=== PATIENT | female | born 1955 | race Caucasian/White ===

== ENCOUNTER 2025-05-15 07:32 | Inpatient (IN) ==
[2025-05-15] MEDS: MECLIZINE HCL 25 MG TAB PO STA (08:09)
[2025-05-15 08:15] LABS: Hematocrit (blood only) 28.3 % (37.0-47.0); Hemoglobin 9.3 g/dl (12.0-16.0); Immature Granulocytes # (auto) 0.06 K/uL (0.01-0.20); Immature Granulocytes % (auto) 0.6 %; Mean Corpuscular Hemoglobin 29.0 pg (25.0-34.0); Mean Corpuscular Volume 88.2 fL (80.0-100.0); Platelet Count 334 K/uL (130-400); RDW Standard Deviation 45.1 fL (36.4-46.3); Red Blood Count 3.21 M/uL (4.20-5.40); White Blood Count 10.74 K/ul (4.8-10.8)
[2025-05-15 08:28] LABS: Alanine Aminotransferase 9 U/L (7-52); Albumin Globulin Ratio 1.6 (0.9-2); Alkaline Phosphatase 51 U/L (34-104); Anion Gap 5 (3-11); Bilirubin,Total 0.4 mg/dl (0.2-1.0); Blood Urea Nitrogen 37 mg/dl (6-23); Calcium 8.8 mg/dl (8.6-10.3); Carbon Dioxide 26 mmol/L (21-32); Chloride 108 mmol/L (98-107); Creatinine Clr Calc Pharmacy 70.8 ml/min; Globulin 2.4 gm/dl (2.5-4.0); Glucose 112 mg/dl (70-99(Fasting)); Magnesium 1.8 mg/dl (1.7-2.4); Potassium 4.0 mmol/L (3.5-5.1); Sodium 139 mmol/L (136-145); Total Protein 6.3 gm/dl (6.0-8.3)
[2025-05-15] MEDS: OPTIRAY 320 125ml IV ONE ×2 (08:37→10:30)
[2025-05-15 08:44] LABS: Thyroid Stimulating Hormone 0.345 uIu/ml (0.300-4.500)
--- NOTE | 2025-05-15 09:04 | CT Scan Report ---
CT angio chest PE protocol CT DOSE: 424.38 mGy.cm HISTORY: SOB, tachycardic, lightheaded. TECHNIQUE: Multiple CTA images of the chest were obtained after the intravenous administration of 120 ml Optiray. Coronal and sagittal MIPS were obtained from the axial data set and were submitted for review. All measurements were obtained according to NASCET criteria. A dose lowering technique was u tilized adhering to the principles of ALARA. COMPARISON STUDY: Chest x-ray yesterday FINDINGS: There is mild bronchial wall thickening consistent with bronchitis. There is minimal depend ent atelectasis in the lung bases. There is no pulmonary consolidation or pleural effusion. No pneumo thorax. No significant pulmonary nodule. No enlarged adenopathy. There is a small hiatal hernia. Ther e is minimal esophageal distention with mild retained fluid. There are a few cysts at the visualized upper liver. There is no thoracic aortic dissection or aneurysm. No pulmonary embolism. No acute osse ous findings. IMPRESSION: No pulmonary embolism or pneumonia seen. ACT 112: Negative or not required by law. The above report was generated using voice recognition software. It may contain grammatical, syntax o r spelling errors. Electronically signed by: Marcellus Calderón M.D. 05/15/2025 9:02 AM
[2025-05-15 09:13] LABS: Chlamydia pneumoniae PCR Not Detected (NotDetected); Coronavirus 229E PCR Not Detected (NotDetected); Coronavirus CoV-2 (COVID19)PCR Not Detected (NotDetected); Coronavirus HKU1 PCR Not Detected (NotDetected); Coronavirus NL63 PCR Not Detected (NotDetected); Coronavirus OC43PCR Not Detected (NotDetected); Human Metapneumovirus PCR Not Detected (NotDetected); Parainfluenza Virus 1 PCR Not Detected (NotDetected); Parainfluenza Virus 2 PCR Not Detected (NotDetected); Parainfluenza Virus 3 PCR Not Detected (NotDetected); Parainfluenza Virus 4 PCR Not Detected (NotDetected); Respiratory Syncytial VirusPCR Not Detected (NotDetected); Rhinovirus/Enterovirus PCR Not Detected (NotDetected)
[2025-05-15] MEDS ORDERED: SODIUM CHLORIDE 0.9% 100 ML IV PRN (10:16)
[2025-05-15] MEDS ORDERED: PANTOPRAZOLE BOLUS/DRIP IV STA (10:37)
--- NOTE | 2025-05-15 10:37 | History & Physical Report ---
Date of Service May 15, 2025 Assessment & Plan (1) Acute blood loss anemia: Plan: -given large melanotic diarrhea yesterday, elevated BUN and 3 point Hgb drop strongly suggested -diminished cap refill suggestive of possible impending shock -differential includes perforated gastric ulceration, erosive gastritis, vascular ectasia, malignancy, Diulafoys lesion, gastric varices, other upper GI bleed, less likely lower GI bleed Plan: -2 large bore IVs -investigator consult, admit to ICU given presumed rapid GI bleed -CTA abdomen/pelvis STAT ordered by this provider immediately upon admission -f/u lactic acid -PPI drip with 80 IV bolus -GI consulted for consideration of scope, appreciate recs -if active GI bleed will need emergent transfer for IR ablation -blood consent obtained, 2 units of blood ordered urgently -LR 1 L ordered, will give 2.5L total -avoid NSAIDs, SCDs ordered (2) Melena: Plan: -see above (3) Hypothyroidism: Plan: -continue levothyroxine (4) HLD (hyperlipidemia): Plan: -continue simvastatin Plan I spent a total of 90 minutes in direct patient care, including [id number] time with the patient and/or family, reviewing medical records, ordering and reviewing diagnostic tests, and coordinating care with other healthcare providers. This time includes: history taking, physical examination, medical decision making, counseling, ECG interpretation, imaging interpretation, lab interpretation, orders, and education, excluding time spent in the performance of separately billed services. History of Present Illness Chief Complaint: -melena, syncope Primary Care Provider: Berlin Frausto MD 70 yo female with pmhx of hypothyroidism, diverticulosis, HLD who presents for melena and syncope. No admissions at [facility]. Had ED visit yesterday for melena, Hgb stable, discharged home. Today, presents for syncopal episodes while walking, Hgb drop of 3 points, given meclizine, CTA chest unrevealing, admitted to medicine for further workup. On medicine, this provider ordered CTA abdomen/pelvis STAT, started protonix, ordered lactic acid, fluids, GI consulted immediately upon admission. Upon evaluation, blood ordered given paleness and diminished cap refill. Patient seen and evaluated at bedside. present as well. Patient had large melanotic diarrhea yesterday. No BM since then. This morning had presyncopal and syncopal episodes from sitting to standing. Patient feels very fatigued and weak. She states she is feeling sleepy all the time for the past 24-48 hours. Some nausea as well. Denies chest pain or SOB. No alcohol use, no tobacco use, no drug use, full code (discussed and recommended to patient and family who agree) Allergies Allergy/AdvReac Type Severity Reaction Status Date / Time No Known Allergies Allergy Unverified 02/27/11 20:45 Home Medications Medication Instructions Recorded Confirmed Type conjugated estrogens 0.625 mg 0 mg PO DAILY ##0 02/27/11 05/15/25 History tablet (Premarin) simvastatin 20 mg tablet 20 mg PO PM ##0 02/27/11 05/15/25 History levothyroxine 100 mcg tablet 100 mcg PO DAILY 05/14/25 05/15/25 History Past Med/Surg History Problem List (Updated 05/15/25 @ 10:59 by Mj Campos MD) HLD (hyperlipidemia) Hypothyroidism Melena Acute blood loss anemia Nausea (Acute) Bloody diarrhea (Acute) Diarrhea (Acute) Social History Smoking Status: Never smoker Preferred Language: Nigerien Feels Safe at Home: Yes Review of Systems Review of Systems: -negative unless listed above Physical Exam Physical Exam: Gen: A&O 3 NAD, ill appearing HEENT: NCAT, EOMI, not icteric. External ears normal. No rhinorrhea. Moist mucous membranes. Neck: Supple, full range of motion, no observable masses, No meningeal sign. Lungs: No Respiratory distress. CV: tachycardic, regular rhythm Abdomen: Soft, nondistended, No rebound tenderness. MSK: No joint swelling, no redness. Diminished cap refill. Skin: No rashes, petechiae, lesions. Pale appearing Neuro: Normal Gait, Grossly intact. Psych: Appropriate for situation. Results & Data Results & Data Vital Signs (Past 12 Hours) Vital Signs Temp Pulse Resp BP Pulse Ox O2 Del Method O2 Flow Rate 05/15/25 10:01 129/82 05/15/25 10:00 100 H 24 99 05/15/25 09:54 87 20 97 05/15/25 09:42 91 H 99 05/15/25 09:21 87 18 97 05/15/25 09:18 87 19 97 05/15/25 09:00 94/65 L 05/15/25 09:00 94/65 L 05/15/25 08:48 93 H 16 98 05/15/25 08:42 94 H 23 99 05/15/25 08:39 101 H 21 99 05/15/25 08:15 99 H 22 97 05/15/25 08:11 114 H 05/15/25 08:00 100 H 98 05/15/25 08:00 113/79 05/15/25 08:00 113/79 05/15/25 07:55 98 Room Air 0 05/15/25 07:51 126/85 05/15/25 07:39 36.6 C 116 H 18 102/71 100 Room Air Laboratory Results -personally reviewed, Hgb drop of 3 points significant in 24 hours, elevated BUN consistent with active GI bleed, creatinine at baseline Code Status & VTE Plan Code Status -full code, recommended to and discussed with patient and family in room
--- NOTE | 2025-05-15 11:07 | CT Scan Report ---
CT ANGIOGRAPHY OF THE ABDOMEN AND PELVIS CLINICAL HISTORY: Concern for active GI bleed. COMPARISON STUDY: No previous studies for comparison. TECHNIQUE: Helical axial images of the abdomen and pelvis were obtained during arterial phase followi ng intravenous injection 120 cc of Optiray 320 IV. Sagittal and coronal reformats were viewed. A dose lowering technique was utilized adhering to the principles of ALARA. FINDINGS: Visualized lung bases are unremarkable. No pneumatosis, free air or gas is present. There i s a small hiatal hernia. Note is made of a 1.8 cm hyperdense focus within the posterior gastric antru m on image 93 of 349 suggestive of intraluminal IV contrast. This suggests active GI bleed. No additi onal foci of abnormal intraluminal IV contrast are identified on this exam. The caliber of the abdomi nal aorta is normal. Major branch vessels are patent. Several hepatic cysts measure up to 5.1 cm. The spleen, adrenal glands, kidneys and pancreas are unremarkable. Incidental note is made of excreted c ontrast from recent chest CT. 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 No hydronephrosis. Ther e is no evidence for a bowel obstruction. No bowel wall thickening is identified. There is a moderate amount of stool within the distal sigmoid colon and rectum. There is no lymphadenopathy. No biliary or pancreatic ductal dilatation is present. IMPRESSION: 1. 1.8 cm hyperdense focus within the posterior gastric antrum consistent with an active GI bleed. Th is finding will be called/faxed to the ordering provider at time of dictation. 2. Otherwise, unremarkable CTA of the abdomen and pelvis. ACT 112: Negative or not required by law. Electronically signed by: Eber Hernandez M.D. 05/15/2025 11:05 AM
[2025-05-15] MEDS: LACTATED RINGER'S 1,000 ML IV ONE (11:11)
[2025-05-15] MEDS: PANTOprazole 40 MG in DEXTROSE 5% MINI-B 100 ML IV SCH (11:25)
--- NOTE | 2025-05-15 11:42 | Emergency Department Note ---
Impression & Plan Acute blood loss anemia, GI bleeding ED Provider Note NAME: MONSE CEDENO AGE: 70 SEX: F : 1955 ARRIVES VIA: Walk-In INFORMANT: Patient, ED PROVIDER(S): Ruthy Aviles MD CHIEF COMPLAINT: Tachycardia HPI: This is a 70-year-old female sent for tachycardia/dizziness. Patient states that she was discharged yesterday feeling better but has had recurrence of her symptoms of lightheadedness/dizziness. She states she feels that she might pass out when she stands up. She does feel short of breath with ambulation. She reports no chest pain currently. She reports no abdominal pain. She reports no further bloody or black bowel movements. Otherwise no fevers, chills, nausea or vomiting. ROS: See above HPI for pertinent positives & negatives. A total of 10 systems reviewed and were otherwise negative. PAST MEDICAL HISTORY: See Below PAST SURGICAL HISTORY: See Below FAMILY HISTORY: See Below SOCIAL HISTORY: See Below HOME MEDICATIONS: See Below ALLERGIES: See Below VITALS: See Below PHYSICAL EXAMINATION: General: resting comfortably in no acute distress Head: Normocephalic and atraumatic Eyes: Normal inspection, extraocular muscles intact Ear, nose, throat: Normal external exam Neck: Normal range of motion Respiratory: lungs clear to auscultation bilaterally Cardiovascular: Regular rate/rhythm, no murmur GI: soft, nontender, no guarding or rebound Extremities: nontender, moves all extremities Neuro: The patient awake and alert, appropriately conversive, no focal deficits, symmetric faces Skin: Warm, dry, and intact MEDICAL DECISION MAKING: This is a 70-year-old female presented for tachycardia/dizziness. Patient was here yesterday, seen by myself after 1 episode of black stool. This is been only 1 time, not recurrent. Patient is tachycardic. Patient was orthostatic hypotension yesterday, persistent today. Will give recent blood work. Patient persistently tachycardic without abdominal pain. She does report shortness of breath otherwise. -Repeat blood work does reveal downtrending hemoglobin almost 3 points. Likely from from GI bleed. - Upper respiratory panel negative - CTA PE protocol negative - Patient will be admitted to [facility] service for presented hemoglobin, GI bleed, tachycardia -Care discussed with Dr. Mccall Differential diagnosis: PE, anemia, GI bleed Independent History obtained from: Diagnostics interpreted by me: ECG: ECG independently interpreted by me with sinus tachycardia, rate of 101, normal axis, normal [place], normal QRS, normal QTc, no ST segment elevations consistent with STEMI criteria Cardiac Monitoring: An order was placed for continuous cardiac monitoring. The monitor shows a rate of with 102 with sinus rhythm. Past Med/Surg History Problem List (Updated 05/15/25 @ 15:33 by Ruthy Aviles MD) GI bleeding (Acute) Anemia HLD (hyperlipidemia) Hypothyroidism Melena Acute blood loss anemia (Acute) Nausea (Acute) Bloody diarrhea (Acute) Diarrhea (Acute) Social History Smoking Status: Never smoker Preferred Language: Dutch Feels Safe at Home: Yes Allergies Allergies Allergy/AdvReac Type Severity Reaction Status Date / Time No Known Allergies Allergy Unverified 02/27/11 20:45 Home Meds Home Medications Medication Instructions Recorded Confirmed conjugated estrogens 0.625 mg 0 mg PO DAILY ##0 02/27/11 05/15/25 tablet (Premarin) simvastatin 20 mg tablet 20 mg PO PM ##0 02/27/11 05/15/25 levothyroxine 100 mcg tablet 100 mcg PO DAILY 05/14/25 05/15/25 Results & Data (ED) Vital Signs Vital Signs - 24 hr 05/15/25 07:39 05/15/25 07:51 05/15/25 07:55 Temperature 36.6 C Temperature Source Temporal Artery Scan Pulse Rate 116 H Pulse Rate from SpO2 Sensor Respiratory Rate 18 Respiratory Effort / Characteristics Non-Labored Spontaneous Respiratory Depth Normal Respiratory Pattern Regular Blood Pressure 102/71 126/85 Blood Pressure Mean 81 105 Pulse Oximetry 100 98 Oxygen Delivery Method Room Air Room Air Oxygen Flow Rate 0 Sepsis Recent Fever Within 48 Hours No Sepsis New/Unexplained Change in Mental Status No Sepsis Action Taken by Nursing No Action Required 05/15/25 08:00 05/15/25 08:00 05/15/25 08:00 Temperature Temperature Source Pulse Rate 100 H Pulse Rate from SpO2 Sensor 104 H Respiratory Rate Respiratory Effort / Characteristics Respiratory Depth Respiratory Pattern Blood Pressure 113/79 113/79 Blood Pressure Mean 94 94 Pulse Oximetry 98 Oxygen Delivery Method Oxygen Flow Rate Sepsis Recent Fever Within 48 Hours Sepsis New/Unexplained Change in Mental Status Sepsis Action Taken by Nursing 05/15/25 08:11 07/31/25 08:15 05/15/25 08:39 Temperature Temperature Source Pulse Rate 114 H 99 H 101 H Pulse Rate from SpO2 Sensor 99 H 100 H Respiratory Rate 22 21 Respiratory Effort / Characteristics Respiratory Depth Respiratory Pattern Blood Pressure Blood Pressure Mean Pulse Oximetry 97 99 Oxygen Delivery Method Oxygen Flow Rate Sepsis Recent Fever Within 48 Hours Sepsis New/Unexplained Change in Mental Status Sepsis Action Taken by Nursing 05/15/25 08:42 05/15/25 08:48 05/15/25 09:00 Temperature Temperature Source Pulse Rate 94 H 93 H Pulse Rate from SpO2 Sensor 94 H 95 H Respiratory Rate 23 16 Respiratory Effort / Characteristics Respiratory Depth Respiratory Pattern Blood Pressure 94/65 L Blood Pressure Mean 77 Pulse Oximetry 99 98 Oxygen Delivery Method Oxygen Flow Rate Sepsis Recent Fever Within 48 Hours Sepsis New/Unexplained Change in Mental Status Sepsis Action Taken by Nursing 05/15/25 09:00 05/15/25 09:18 05/15/25 09:21 Temperature Temperature Source Pulse Rate 87 87 Pulse Rate from SpO2 Sensor 87 87 Respiratory Rate 19 18 Respiratory Effort / Characteristics Respiratory Depth Respiratory Pattern Blood Pressure 94/65 L Blood Pressure Mean 77 Pulse Oximetry 97 97 Oxygen Delivery Method Oxygen Flow Rate Sepsis Recent Fever Within 48 Hours Sepsis New/Unexplained Change in Mental Status Sepsis Action Taken by Nursing 05/15/25 09:42 Temperature Temperature Source Pulse Rate 91 H Pulse Rate from SpO2 Sensor 90 Respiratory Rate Respiratory Effort / Characteristics Respiratory Depth Respiratory Pattern Blood Pressure Blood Pressure Mean Pulse Oximetry 99 Oxygen Delivery Method Oxygen Flow Rate Sepsis Recent Fever Within 48 Hours Sepsis New/Unexplained Change in Mental Status Sepsis Action Taken by Nursing Laboratory Data 05/15/25 11:21 05/15/25 11:21 Lab Results 05/15/25 05/15/25 Range/Units 07:50 08:10 WBC 10.74 (4.8-10.8) K/ul RBC 3.21 L (4.20-5.40) M/uL Hgb 9.3 L D (12.0-16.0) g/dl Hct 28.3 L (37.0-47.0) % MCV 88.2 (80.0-100.0) fL MCH 29.0 (25.0-34.0) pg MCHC 32.9 (32.0-36.0) g/dL RDW Std Deviation 45.1 (36.4-46.3) fL RDW Coeff of Kevin 14.0 (11.5-14.5) % Plt Count 334 (130-400) K/uL MPV 10.6 (9.4-12.4) fL Immature Gran % (Auto) 0.6 % Neut % (Auto) 69.6 % Lymph % (Auto) 23.8 % Emery % (Auto) 5.1 % Eos % (Auto) 0.5 % Baso % (Auto) 0.4 % Neut # (Auto) 7.48 H (1.40-6.50) K/uL Lymph # (Auto) 2.56 (1.20-3.40) K/uL Emery # (Auto) 0.55 (0.11-0.59) K/uL Eos # (Auto) 0.05 (0.00-0.50) K/uL Baso # (Auto) 0.04 (0.00-0.20) K/uL Immature Gran # (Auto) 0.06 (0.01-0.20) K/uL Sodium 139 (136-145) mmol/L Potassium 4.0 (3.5-5.1) mmol/L Chloride 108 H (98-107) mmol/L Carbon Dioxide 26 (21-32) mmol/L Anion Gap 5 (3-11) BUN 37 H (6-23) mg/dl Creatinine 0.71 (0.6-1.2) mg/dl Est Cr Clr Drug Dosing 70.8 ml/min eGFR 92.56 BUN/Creatinine Ratio 52.1 H (10-20) Glucose 112 H (70-99(Fasting)) mg/dl Calcium 8.8 (8.6-10.3) mg/dl Magnesium 1.8 (1.7-2.4) mg/dl Total Bilirubin 0.4 (0.2-1.0) mg/dl AST 14 (13-39) U/L ALT 9 (7-52) U/L Alkaline Phosphatase 51 (34-104) U/L Troponin I High Sens < 2.3 (0-14) pg/ml Total Protein 6.3 (6.0-8.3) gm/dl Albumin 3.9 (3.4-5.0) gm/dl Globulin 2.4 L (2.5-4.0) gm/dl Albumin/Globulin Ratio 1.6 (0.9-2) TSH 0.345 (0.300-4.500) uIu/ml Adenovirus (PCR) Not Detected (NotDetected) B. pertussis DNA (PCR) Not Detected (NotDetected) B.parapertussis DNA PCR Not Detected (NotDetected) C. pneumoniae DNA (PCR) Not Detected (NotDetected) Coronavirus OC43 (PCR) Not Detected (NotDetected) Coronavirus HKU1 (PCR) Not Detected (NotDetected) Coronavirus 229E (PCR) Not Detected (NotDetected) SARS-CoV-2 (PCR) Not Detected (NotDetected) Coronavirus NL63 (PCR) Not Detected (NotDetected) Human Metapneumovir PCR Not Detected (NotDetected) Influenza Type A (PCR) Not Detected (NotDetected) Influenza Type B (PCR) Not Detected (NotDetected) M. pneumoniae (PCR) Not Detected (NotDetected) Parainfluenza 1 (PCR) Not Detected (NotDetected) Parainfluenza 2 (PCR) Not Detected (NotDetected) Parainfluenza 3 (PCR) Not Detected (NotDetected) Parainfluenza 4 (PCR) Not Detected (NotDetected) RSV (PCR) Not Detected (NotDetected) Entero/Rhino (PCR) Not Detected (NotDetected) Administered Medications Discontinued Medications Lactated Ringer's (Lr) 1,000 mls @ 999 mls/hr IV .Q1H1M ONE Stop: 05/15/25 11:26 Last Infusion: 05/15/25 14:24 Dose: Infused Documented By: NMJayden Admin: 05/15/25 11:11 Dose: 999 mls/hr Documented By: MELISSA Pantoprazole Sodium 40 mg/ (Dextrose) 100 mls @ 20 mls/hr IV Q5H ELE Stop: 06/14/25 10:59 Last Infusion: 05/15/25 14:24 Dose: Infused Documented By: Admin: 05/15/25 11:25 Dose: 8 mg/hr, 20 mls/hr Documented By: MELISSA Pantoprazole Sodium 80 mg/ (Dextrose) 120 mls @ 480 mls/hr IV NOW ONE Stop: 05/15/25 10:51 Last Infusion: 05/15/25 11:25 Dose: Infused Documented By: Admin: 05/15/25 11:12 Dose: 480 mls/hr Documented By: MELISSA Ioversol (Optiray 320 125ml) 120 ml IV ONCE ONE Stop: 05/15/25 08:37 Last Admin: 05/15/25 08:37 Dose: 120 ml Documented By: SHARMAINE Ioversol (Optiray 320 125ml) 120 ml IV ONCE ONE Stop: 05/15/25 10:30 Last Admin: 05/15/25 10:30 Dose: 120 ml Documented By: SHARMAINE Meclizine HCl (Meclizine Hcl 25 Mg Tab) 25 mg PO NOW STA Stop: 05/15/25 08:04 Last Admin: 05/15/25 08:09 Dose: 25 mg Documented By: MELISSA Metoclopramide HCl (Metoclopramide Hcl Inj 5 Mg/Ml 2 Ml Vial) 10 mg IV NOW STA Stop: 05/15/25 11:52 Last Admin: 05/15/25 11:58 Dose: 10 mg Documented By: MELISSA Imaging Data Radiologist's Impression: Chest CTA 05/15/25 08:03 CT angio chest PE protocol CT DOSE: 424.38 mGy.cm HISTORY: SOB, tachycardic, lightheaded. TECHNIQUE: Multiple CTA images of the chest were obtained after the intravenous administration of 120 ml Optiray. Coronal and sagittal MIPS were obtained from the axial data set and were submitted for review. All measurements were obtained according to NASCET criteria. A dose lowering technique was utilized adhering to the principles of ALARA. COMPARISON STUDY: Chest x-ray yesterday FINDINGS: There is mild bronchial wall thickening consistent with bronchitis. There is minimal dependent atelectasis in the lung bases. There is no pulmonary consolidation or pleural effusion. No pneumothorax. No significant pulmonary nodule. No enlarged adenopathy. There is a small hiatal hernia. There is minimal esophageal distention with mild retained fluid. There are a few cysts at the visualized upper liver. There is no thoracic aortic dissection or aneurysm. No pulmonary embolism. No acute osseous findings. IMPRESSION: No pulmonary embolism or pneumonia seen. ACT 112: Negative or not required by law. The above report was generated using voice recognition software. It may contain grammatical, syntax or spelling errors. Electronically signed by: Marcellus Calderón M.D. 05/15/2025 9:02 AM Abdomen/Pelvis CTA 05/15/25 09:45 CT ANGIOGRAPHY OF THE ABDOMEN AND PELVIS CLINICAL HISTORY: Concern for active GI bleed. COMPARISON STUDY: No previous studies for comparison. TECHNIQUE: Helical axial images of the abdomen and pelvis were obtained during arterial phase following intravenous injection 120 cc of Optiray 320 IV. Sagittal and coronal reformats were viewed. A dose lowering technique was utilized adhering to the principles of ALARA. FINDINGS: Visualized lung bases are unremarkable. No pneumatosis, free air or gas is present. There is a small hiatal hernia. Note is made of a 1.8 cm hyperdense focus within the posterior gastric antrum on image 93 of 349 suggestive of intraluminal IV contrast. This suggests active GI bleed. No additional foci of abnormal intraluminal IV contrast are identified on this exam. The caliber of the abdominal aorta is normal. Major branch vessels are patent. Several hepatic cysts measure up to 5.1 cm. The spleen, adrenal glands, kidneys and pancreas are unremarkable. Incidental note is made of excreted contrast from recent chest CT. 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 No hydronephrosis. There is no evidence for a bowel obstruction. No bowel wall thickening is identified. There is a moderate amount of stool within the distal sigmoid colon and rectum. There is no lymphadenopathy. No biliary or pancreatic ductal dilatation is present. IMPRESSION: 1. 1.8 cm hyperdense focus within the posterior gastric antrum consistent with an active GI bleed. This finding will be called/faxed to the ordering provider at time of dictation. 2. Otherwise, unremarkable CTA of the abdomen and pelvis. ACT 112: Negative or not required by law. Electronically signed by: Eber Hernandez M.D. 05/15/2025 11:05 AM Discharge Plan Visit Data Chief Complaint: Arrhythmia/Palpitations Stated Complaint: DIZZY,LIGHTHEADED,HIGH HEART RATE ED Provider: Ruthy Aviles Discharge Problem: Acute blood loss anemia, GI bleeding Patient Disposition: Admitted As Inpatient Condition: Fair Discharge Instructions Interventions: ED Discharge Assessment Last Done: 05/15/25 12:51
[2025-05-15 11:45] LABS: Hematocrit (blood only) 19.3 % (37.0-47.0); Hemoglobin 6.4 g/dl (12.0-16.0); Mean Corpuscular Hemoglobin 29.5 pg (25.0-34.0); Mean Corpuscular Volume 88.9 fL (80.0-100.0); Platelet Count 202 K/uL (130-400); RDW Standard Deviation 45.8 fL (36.4-46.3); Red Blood Count 2.17 M/uL (4.20-5.40); White Blood Count 7.17 K/ul (4.8-10.8)
[2025-05-15 11:57] LABS: Anion Gap 3.0 (3-11); Blood Urea Nitrogen 36.0 mg/dl (6-23); Calcium 7.5 mg/dl (8.6-10.3); Carbon Dioxide 24.0 mmol/L (21-32); Chloride 109.0 mmol/L (98-107); Creatinine Clr Calc Pharmacy 81.1 ml/min; Glucose 138.0 mg/dl (70-99(Fasting)); Potassium 4.3 mmol/L (3.5-5.1); Sodium 136.0 mmol/L (136-145)
[2025-05-15] MEDS: METOCLOPRAMIDE HCL INJ 5 MG/ML 2 ML VIAL IV STA (11:58)
--- NOTE | 2025-05-15 12:01 | Gastrointestinal Consultation ---
Date of Consultation May 15, 2025 Assessment & Plan (1) Melena: (2) Anemia: Plan Patient presented to the ED with syncopal episode. one large melanotic stool yesterday per patient and . she had hgb drop from 12.9 to 6.4. CTA suggestive of active bleed in the posterior gastric antrum. Discussed case with Dr. Newman who advised on plan. - set up emergent EGD to further evaluate active GI bleeding. - monitor hgb/hct. transfuse as needed. - recommend continue with protonix drip. - keep NPO. - will give 10mg of IV reglan now. -Further recommendations to follow. Supervising Physician Co-Signing Physician Notes I saw and examined this patient with our nurse practitioner and agree with her assessment and plan. Proceeding with emergency EGD in OR. History of Present Illness Reason for Consultation: melena, GIB Requesting Physician: Mj Campos MD History of Present Illness Patient is a 70 year old female who presented to the ED today after a syncopal episode. She had passed out at home per her . She reportedly had a large melanotic stool yesterday with none since. hgb dropped from 12.9 to the 6.4 today. she underwent a CTA suggestive of active bleeding in the stomach. patient denies other GI symptoms currently. rare nsaid use at home but not recently. CTA 05/15/25 1.8 cm hyperdense focus within the posterior gastric antrum consistent with an active GI bleed. This finding will be called/faxed to the ordering provider at time of dictation. otherwise, unremarkable CTA of the abdomen and pelvis. she had never had an EGD before. She had colonoscopy about 3 years ago that was unremarkable. Allergies Allergy/AdvReac Type Severity Reaction Status Date / Time No Known Allergies Allergy Unverified 02/27/11 20:45 Home Medications Medication Instructions Recorded Confirmed Type conjugated estrogens 0.625 mg 0 mg PO DAILY ##0 02/27/11 05/15/25 History tablet (Premarin) simvastatin 20 mg tablet 20 mg PO PM ##0 02/27/11 05/15/25 History levothyroxine 100 mcg tablet 100 mcg PO DAILY 05/14/25 05/15/25 History Patient History Social History Smoking Status: Never smoker Preferred Language: [place] Feels Safe at Home: Yes Review of Systems Review of Systems: All systems reviewed & are unremarkable except as noted in HPI & below Physical Exam Constitutional: WD/WN, vitals as above Respiratory: normal respiratory effort, lungs clear to auscultation Cardiovascular: Rate/Rhythm: regular rate and regular rhythm Gastrointestinal (Abdomen): normal bowel sounds, soft, nontender, no hepatosplenomegaly Psychiatric: Orientation: alert and oriented x 3 Affect: euthymic affect Results & Data Vital Signs (Past 12 Hours) Vital Signs Temp Pulse Resp BP Pulse Ox O2 Del Method O2 Flow Rate 05/15/25 11:37 Room Air 05/15/25 11:37 Room Air 05/15/25 10:01 129/82 05/15/25 10:00 100 H 24 99 05/15/25 09:54 87 20 97 05/15/25 09:42 91 H 99 05/15/25 09:21 87 18 97 05/15/25 09:18 87 19 97 05/15/25 09:00 94/65 L 05/15/25 09:00 94/65 L 05/15/25 08:48 93 H 16 98 05/15/25 08:42 94 H 23 99 05/15/25 08:39 101 H 21 99 05/15/25 08:15 99 H 22 97 05/15/25 08:11 114 H 05/15/25 08:00 100 H 98 05/15/25 08:00 113/79 05/15/25 08:00 113/79 05/15/25 07:55 98 Room Air 0 05/15/25 07:51 126/85 05/15/25 07:39 97.9 F 116 H 18 102/71 100 Room Air Coding Level of Care Code 45197 INT INP/OBS CARE 3/75MIN Diagnoses Melena K92.1 Anemia D64.9
[2025-05-15 12:05] LABS: INR 1.1 (0.9-1.1); Partial Thromboplastin Time 25 Seconds (21-31); Prothrombin Time 11.8 Seconds (9.0-12.0)
[2025-05-15 12:16] LABS: Fibrinogen 180 mg/dl (184-400)
[2025-05-15] MEDS ORDERED: ETOMIDATE 2 MG/ML 20 ML VIAL IV ONE (12:18)
[2025-05-15 12:33] LABS: Base Excess VBG -4.2 mEq/L; HCO3 VBG 21 mmol/L; Oxygen Saturation VBG 63.7 %; PCO2 VBG 38 mmHg (38-50); PO2 VBG 32 mmHg; pH VBG 7.35 (7.36-7.41)
--- NOTE | 2025-05-15 12:59 | Critical Care Consultation ---
Date of Consultation May 15, 2025 Assessment & Plan (1) Acute blood loss anemia: (2) GI bleeding: (3) Hypothyroidism: (4) HLD (hyperlipidemia): Plan Patient is a 70yo F w/ PMH notable for hypothyroidism, diverticulosis, and HLD who presented to the ER on 05/15 with melena and syncope, and was found to have a significant drop in Hgb. Imaging was consistent with active GI bleeding. [facility] IR recommended EGD emergently to evaluate bleed, after which patient was moved to ICU for monitoring of hemodynamic stability and further management. Neuro CAM ICU - negative RASS - goal 0 Pulm No acute concerns CXR 05/14 did show hyperexpanded lungs, without pneumonia Patient maintaining SpO2 > 90% on room air. CV Patient initially tachycardiac and hypotensive, but BP corrected after IV fluids and HR normalized after procedure. Trop wnl. EKG without ischemic changes. Continue simvastatin 20mg daily FEN/GI Given 1L LR in ER. Given 25mg meclizine, 80 + 40 mg Protonix, and 10mg Reglan. GI consulted, performed emergent EGD. Resume regular diet as tolerated. Renal/lytes No severe electrolyte derangements. Cr 0.62. BUN is elevated, consistent with GIB. Heme/Onc Baseline Hgb on 05/14 was 12.9 Initial Hgb today was 9.3, dropped to 6.4 on recheck. Given 3 units pRBCs and 2 units FFP. CTA abd/pelvis showed a 1.8 cm hyperdense focus within the posterior gastric antrum, consistent with an active GI bleed. BUN elevated to 36, also consistent with GIB. Coags normal. Fibrinogen 180. D-dimer elevated at 600. VBG unremarkable. Emergent EGD on 05/15 to evaluate active GI bleeding. A Dieulafoy lesion with signs of recent bleeding was found in the gastric antrum and removed. 3 clips placed for hemostasis. No bleeding at procedure end. No specimens collected. Patient now hemodynamically stable. GI rec return to normal diet. Transfuse prn, threshold hgb < 7. Endo TSH 0.345. Continue levothyroxine 100 mcg daily ID Afebrile, no leukocytosis, RPP negative Lines and tubes: 2 large-bore IVs in place VTE prophylaxis: SCDs Code: FULL Supervising Physician Co-Signing Physician Notes Dr. Rivera was resident physician during care of patient. I separately evaluated patient for jaimes portions of the history and the exam. I was present during the critical portion of medical decision making, and I discussed the case with the resident. I generally agree with the findings and plan. During my initial evaluation in the emergency department patient was symptomatic from hemorrhagic shock and required emergent central venous access and aggressive volume resuscitation. She immediately went to the operating room where a Dieulafoy lesion was diagnosed and treated successfully. Presently we are following serial labs. I have personally spent 45 minutes of critical care time in the direct management of this patient. This is a life/limb threatening event. This includes time spent evaluating patient, direct bedside care, chart review, placing orders, interpretation of diagnostic studies, discussion with consultants, patient, and/or family members regarding treatment decisions, as well as other required patient management activities. This time is exclusive of all separately billable procedures, and teaching time and separate from and in addition to any other critical care service time. History of Present Illness History of Present Illness Seen in the ER yesterday, for nausea, abd cramping, and an episode of diarrhea w/ black stools. She also reported having lightheadedness upon standing, for which she was given 1L IV saline, and intermittent night sweats. Labs at that time were unremarkable except FOBT+, patient was hemodynamically stable, and no diarrhea occurred during ED visit. Patient was discharged home. Returned this morning with worsening pre-syncope. Has not had any further melena but feeling very lightheaded upon standing. Hgb showed significant drop from yesterday, and recheck dropped 3 points further. CTA abd/pelvis suggestive of gastric antrum bleed. Given 3 units pRBCs and 2 units FFP. Patient also received 1L IV fluids, meclizine, and PPI. [facility] and our GI teams were contacted, and patient was taken for emergent EGD. A Dieulafoy lesion was found and removed, with clips placed for hemostasis. After recovery, patient was brought to the ICU. Seen and examined at bedside. She is now hemodynamically stable and feels well. Reports some substernal pain, more a mild ache, since procedure. No nausea, abd pain, SOB. Allergies Allergy/AdvReac Type Severity Reaction Status Date / Time No Known Allergies Allergy Unverified 02/27/11 20:45 Home Medications Medication Instructions Recorded Confirmed Type conjugated estrogens 0.625 mg 0 mg PO DAILY ##0 02/27/11 05/15/25 History tablet (Premarin) simvastatin 20 mg tablet 20 mg PO PM ##0 02/27/11 05/15/25 History levothyroxine 100 mcg tablet 100 mcg PO DAILY 05/14/25 05/15/25 History Patient History Social History Smoking Status: Never smoker Preferred Language: Upper Sor[place] Feels Safe at Home: Yes Review of Systems Constitutional: no fever, no sweats, no body aches, no fatigue and no weakness Eyes: no problem reported Ear, Nose, Mouth, Throat: no sore throat and no hoarseness Respiratory: no dyspnea Cardiovascular: + chest pain; no palpitations and no lig htheadedness Gastrointestinal: + melena (one episode 05/14); no abdomina l pain, no bloating and no nausea Genitourinary: no hematuria Musculoskeletal: no body aches Integumentary: no rash and no bleeding lesions Neurologic: no tingling, no numbness, no lack of coordination and no headache(s) Physical Exam Constitutional: WD/WN, vitals as above no acute distress Eyes: PERRL, conjunctivae normal, anicteric sclerae ENMT: external ear and nose normal, oropharynx normal Neck: trachea midline, no thyromegaly Respiratory: normal respiratory effort, lungs clear to auscultation Cardiovascular: RRR, no murmur, no edema Gastrointestinal (Abdomen): Inspection/Auscultation: normal bowel sounds; abdomen not distended Percussion/Palpation: abdomen soft; abdomen nontender, no guarding, abdomen not rigid and no abdominal mass Musculoskeletal: no cyanosis or clubbing, extremities motor strength 5/5 Head/Neck/Chest: normocephalic and head atraumatic Skin: no rashes, warm and dry Neurologic: PERRL, EOMI, accommodation nl, no face palsy, no dysarthria Motor/Sensory: no tremor and no sensory deficit Psychiatric: A+Ox3, euthymic affect Results & Data Results & Data Vital Signs (Past 12 Hours) Vital Signs Temp Pulse Resp BP Pulse Ox O2 Del Method O2 Flow Rate 05/15/25 12:25 119/79 05/15/25 12:20 112/82 05/15/25 12:20 112/82 05/15/25 12:20 112/82 05/15/25 12:15 102 H 26 H 99 05/15/25 12:15 108/82 05/15/25 12:15 108/82 05/15/25 12:10 114/76 05/15/25 12:05 104/75 05/15/25 12:05 104/75 05/15/25 12:00 114 H 27 H 98 05/15/25 12:00 95/68 L 05/15/25 12:00 95/68 L 05/15/25 12:00 95/68 L 05/15/25 11:57 99 H 25 H 98 05/15/25 11:57 37 C 05/15/25 11:55 114/73 05/15/25 11:55 114/73 05/15/25 11:54 104 H 27 H 98 05/15/25 11:51 111 H 29 H 98 05/15/25 11:50 110/78 05/15/25 11:50 110/78 05/15/25 11:50 110/78 05/15/25 11:50 110/78 05/15/25 11:45 110/73 05/15/25 11:37 Room Air 05/15/25 11:37 Room Air 05/15/25 11:30 104/63 05/15/25 11:30 104/63 05/15/25 11:21 96 H 20 05/15/25 11:15 103 H 23 05/15/25 11:09 95 H 23 05/15/25 11:00 100/73 05/15/25 10:57 100 H 24 05/15/25 10:54 97 H 21 05/15/25 10:42 96 H 22 05/15/25 10:37 109/73 05/15/25 10:37 109/73 05/15/25 10:15 99 H 27 H 98 05/15/25 10:13 129/76 05/15/25 10:13 129/76 05/15/25 10:03 98 H 24 100 05/15/25 10:01 129/82 05/15/25 10:01 129/82 05/15/25 10:00 100 H 24 99 05/15/25 09:54 87 20 97 05/15/25 09:42 91 H 99 05/15/25 09:21 87 18 97 05/15/25 09:18 87 19 97 05/15/25 09:00 94/65 L 05/15/25 09:00 94/65 L 05/15/25 08:48 93 H 16 98 05/15/25 08:42 94 H 23 99 05/15/25 08:39 101 H 21 99 05/15/25 08:15 99 H 22 97 05/15/25 08:11 114 H 05/15/25 08:00 100 H 98 05/15/25 08:00 113/79 05/15/25 08:00 113/79 05/15/25 07:55 98 Room Air 0 05/15/25 07:51 126/85 05/15/25 07:39 36.6 C 116 H 18 102/71 100 Room Air Resident Activity Tracking Resident Involvement: Resident Care Provided Care Provided: Adult Hospital Medicine
[2025-05-15] MEDS ORDERED: PROPOFOL IV EMULSION 10 MG/ML 20 ML VIAL IV ONE (13:05)
--- NOTE | 2025-05-15 13:09 | GI REPORT ---
[facility] Patient: MONSE CEDENO : 1955 Sex at : Female Age: 70 Years Procedure: Upper GI endoscopy Date: 05/15/2025 Attending Physician: Jose De Jesus Newman MD Referring MD: Ruthy Aviles Md Indications: - Hematemesis Medications: - Monitored Anesthesia Care Complications: - No immediate complications. Procedure: - Prior to the procedure, a History and Physical was performed, and patient medications and allergies were reviewed. The patient's tolerance of previous anesthesia was also reviewed. The risks and benefits of the procedure and the sedation options and risks were discussed with the patient. All questions were answered, and informed consent was obtained. [Anticoagulant Agents] [Days Prior to Procedure]. [ASA Grade]. After reviewing the risks and benefits, the patient was deemed in satisfactory condition to undergo the procedure. - The T1 egd scope was introduced through the mouth and advanced to the second part of the duodenum. - The upper GI endoscopy was accomplished without difficulty. - The patient tolerated the procedure well. Findings: - The examined esophagus was normal. - Altered blood/nwyoxu-mbwtbn-sgxp material and clot was found in the gastric body and in the gastric fundus. - A Dieulafoy lesion with oozing bleeding and stigmata of recent bleeding (large adherent clot) was found in the gastric antrum. Area was successfully injected with 3 mL of a 1:10,000 mg/mL solution of epinephrine for hemostasis. The large clot was removed. For hemostasis, three hemostatic clips were successfully placed. There was no bleeding at the end of the procedure. - The examined duodenum was normal. Impression: - Normal esophagus. - Altered blood/mmvhgi-zdxfne-babj material and clot in the gastric body and in the gastric fundus. - Dieulafoy lesion of stomach. - Normal examined duodenum. - No specimens collected. Recommendation: - Resume previous diet. - Patient has a contact number available for emergencies. The signs and symptoms of potential delayed complications were discussed with the patient. Return to normal activities tomorrow. Written discharge instructions were provided to the patient. Procedure Code(s): - 48901, Esophagogastroduodenoscopy, flexible, transoral; with control of bleeding, any method Diagnosis Code(s): - K92.0, Hematemesis - K92.2, Gastrointestinal hemorrhage, unspecified - K31.82, Dieulafoy lesion (hemorrhagic) of stomach and duodenum CPT(R) - 2022 copyright [employer]. All Rights Reserved. The CPT codes, CCI edits and ICD codes generated are intended as suggestions and were generated based on input data. These codes are preliminary and upon websphere commerce consultant review may be revised to meet current compliance and payer requirements. The provider is responsible for the final determination of appropriate codes, and modifiers. Jose De Jesus Newman MD This document has been electronically signed. Note Initiated:05/15/2025 Note Completed:05/15/2025 1:07 PM \\[email or web address]\Results\[email or web address]\[id number]
[2025-05-15] MEDS ORDERED: PROMETHAZINE HCL 6.25 MG in SODIUM CHLORIDE 0.9% 50 ML IV PRN (13:25)
[2025-05-15] MEDS ORDERED: ONDANSETRON INJ 2 MG/ML 2 ML VIAL IV PRN ×2 (13:25→14:21)
[2025-05-15] MEDS ORDERED: ATROPINE SULFATE 0.1 MG/ML 10ML SYR IV PRN (13:25)
--- NOTE | 2025-05-15 13:25 | Anesthesiology Consultation ---
Date of Service May 15, 2025 Assessment & Plan ASA ASA3E Proposed Anesthesia Anesthesia Type: General Risk / Benefits Reviewed With: PT / POA / Parent / Guardian, Accepts Plan and Informed Consent Obtained Additional Comments: i saw the patient in ER and did an H and P and consent. pt was an emergency so late note. History Surgery Operation Date: 05/15/25 11:00 Proposed Procedures p Esophagogastroduodenoscopy - Jose De Jesus Newman MD Height/Weight Height: 5 ft 2 in Weight: 72.7 kg Allergies Allergy/AdvReac Type Severity Reaction Status Date / Time No Known Allergies Allergy Unverified 02/27/11 20:45 Medications Home Medications Medication Instructions Recorded Confirmed Last Taken conjugated estrogens 0.625 mg 0 mg PO DAILY ##0 02/27/11 05/15/25 Unknown tablet (Premarin) simvastatin 20 mg tablet 20 mg PO PM ##0 02/27/11 05/15/25 Unknown levothyroxine 100 mcg tablet 100 mcg PO DAILY 05/14/25 05/15/25 Unknown Active Medications Generic Name Dose Route Start Last Admin Trade Name Juanjoq PRN Reason Stop Dose Admin Pantoprazole Sodium 40 mg/ 100 mls @ 20 mls/hr 05/15/25 11:00 05/15/25 11:25 Dextrose IV 06/14/25 10:59 8 mg/hr Q5H ELE 20 mls/hr Administration 8 MG/HR Exercise / Class Metabolic Activity II 4-5 Yardwork/Stairs/Walk up hill Past Anesthesia History No Hx of Anesthesia Complications and No Family Hx of Anesthesia Complications History of PONV No Hx of PONV and No Hx of Motion Sickness Social History Smoking Status: Never smoker Review of Systems denies fever/cough/ colds/ chest pain/ SOB/ SARAH denies SARAH Physical Exam Vital Signs Last Vital Signs Temp 37 C 05/15/25 11:57 Pulse 102 H 05/15/25 12:15 Resp 26 H 05/15/25 12:15 BP 119/79 05/15/25 12:25 Pulse Ox 99 05/15/25 12:15 O2 Del Method Room Air 05/15/25 11:37 O2 Flow Rate 0 05/15/25 07:55 ENMT Mouth: no TMJ abnormality and no dentition abnormality Thyromental Distance: > or= 3.5 Finger Breadths Mallampati Class: II Neck neck extension not limited Respiratory normal respiratory effort; no respiratory distress Auscultation: lungs clear to auscultation bilaterally Cardiovascular Rate/Rhythm: regular rate and regular rhythm Neurologic moves all extremities Psychiatric Orientation: alert and oriented x 3 Testing Laboratory Results 05/15/25 11:21 05/15/25 11:21 PT 11.8 Seconds (9.0-12.0) 05/15/25 11:21 INR 1.1 (0.9-1.1) 05/15/25 11:21 APTT 25 Seconds (-31) 05/15/25 11:21 Blood Type O Positive 05/15/25 10:23 Antibody Screen NEGATIVE 05/15/25 10:23
[2025-05-15] MEDS ORDERED: SUCCINYLCHOLINE 100MG/5ML SYR IV ONE (13:43)
--- NOTE | 2025-05-15 13:58 | XRay Report ---
XR chest 1V portable CLINICAL HISTORY: line placement COMPARISON STUDY: 05/14/2025 FINDINGS: Heart size and pulmonary vasculature are normal. There is interval stranding opacity at the left lung base. No other consolidation or pleural effusion. No pneumothorax. There is interval right sided central catheter with the tip overlying the right upper mediastinum. IMPRESSION: 1. No pneumothorax seen. 2. Atelectasis versus early pneumonia left lung base. ACT 112: Negative or not required by law. Electronically signed by: Marcellus Calderón M.D. 05/15/2025 1:56 PM
--- NOTE | 2025-05-15 14:14 | Procedure Note ---
Procedure Note Date of Service May 15, 2025 Procedure date: Noted above Procedure: Central venous access Pre-procedure indication: Need for definitive vascular access in the setting of hemorrhagic shock Post-procedure Diagnosis: same as above Prior to Procedure: Informed Consent: The risks, benefits, indications, potential complications, and alternatives were explained to the patient and and verbal informed consent obtained due to acuity of situation. Attending Staff: Lydia Leal DO Resident/APC: Gama Skin Prep: Chlorhexidine Anesthesia: 4 mL 1% lidocaine without epinephrine The identity of the patient was confirmed and a bedside time out was performed. Description of Procedure: After sterile prep and sterile drape utilizing standard sterile technique the superficial skin of the right subclavian area was anesthetized. The target vessel was identified and entered with an 18-gauge needle. Dark venous blood return was noted. A guidewire was inserted through the needle and into the vessel. The needle was withdrawn and a skin xavi was made. A tissue dilator was advanced via Seldinger technique and removed. A double lumen catheter was inserted via Seldinger technique and the guidewire removed. All ports kimberly and flushed easily. The catheter was secured via silk suture. A sterile dressing was then applied. Complications: None Estimated blood loss: Trace Patient tolerated the procedure well. [facility] [place] Procedure Codes (Charges) Tubes, Drains, and Vasc Access Procedure 1: Tubes, Drains, and Vasc Access: [id number] Insertion Of Non-tunneled Catheter Age 7 Yrs> Coding CPT Codes Tubes, Drains, and Vasc Access - Tubes, Drains, and Vasc Access: [id number] Insertion Of Non-tunneled Catheter Age 7 Yrs> ([id number]) Additional Codes Date of Service ([email or web address])
--- NOTE | 2025-05-15 14:19 | Anesthesiology Progress Note ---
Date of Service May 15, 2025 Anesthesia Post Procedure Vital Signs Vital Signs: Temp Pulse Pulse Resp BP BP Pulse Ox 05/15/25 13:50 36.2 C L 89 17 111/72 98 05/15/25 13:40 96 H 17 111/73 97 05/15/25 13:32 36.1 C L 96 H 17 107/66 100 05/15/25 12:25 119/79 05/15/25 12:20 112/82 05/15/25 12:20 112/82 05/15/25 12:20 112/82 05/15/25 12:15 102 H 26 H 99 05/15/25 12:15 108/82 05/15/25 12:15 108/82 05/15/25 12:10 114/76 05/15/25 12:05 104/75 05/15/25 12:05 104/75 05/15/25 12:00 114 H 27 H 98 05/15/25 12:00 95/68 L 05/15/25 12:00 95/68 L 05/15/25 12:00 95/68 L 05/15/25 11:57 99 H 25 H 98 05/15/25 11:57 37 C 05/15/25 11:55 114/73 05/15/25 11:55 114/73 05/15/25 11:54 104 H 27 H 98 05/15/25 11:51 111 H 29 H 98 05/15/25 11:50 110/78 05/15/25 11:50 110/78 05/15/25 11:50 110/78 05/15/25 11:50 110/78 05/15/25 11:45 110/73 05/15/25 11:37 05/15/25 11:37 05/15/25 11:30 104/63 05/15/25 11:30 104/63 05/15/25 11:21 96 H 20 05/15/25 11:15 103 H 23 05/15/25 11:09 95 H 23 05/15/25 11:00 100/73 05/15/25 10:57 100 H 24 05/15/25 10:54 97 H 21 05/15/25 10:42 96 H 22 05/15/25 10:37 109/73 05/15/25 10:37 109/73 05/15/25 10:15 99 H 27 H 98 05/15/25 10:13 129/76 05/15/25 10:13 129/76 05/15/25 10:03 98 H 24 100 05/15/25 10:01 129/82 05/15/25 10:01 129/82 05/15/25 10:00 100 H 24 99 05/15/25 09:54 87 20 97 05/15/25 09:42 91 H 99 05/15/25 09:21 87 18 97 05/15/25 09:18 87 19 97 05/15/25 09:00 94/65 L 05/15/25 09:00 94/65 L 05/15/25 08:48 93 H 16 98 05/15/25 08:42 94 H 23 99 05/15/25 08:39 101 H 21 99 05/15/25 08:15 99 H 22 97 05/15/25 08:11 114 H 05/15/25 08:00 100 H 98 05/15/25 08:00 113/79 05/15/25 08:00 113/79 05/15/25 07:55 98 05/15/25 07:51 126/85 05/15/25 07:39 36.6 C 116 H 18 102/71 100 O2 Del Method O2 Flow Rate 05/15/25 13:50 Room Air 05/15/25 13:40 Room Air 05/15/25 13:32 Nasal Cannula 2 05/15/25 12:25 05/15/25 12:20 05/15/25 12:20 05/15/25 12:20 05/15/25 12:15 05/15/25 12:15 05/15/25 12:15 05/15/25 12:10 05/15/25 12:05 05/15/25 12:05 05/15/25 12:00 05/15/25 12:00 05/15/25 12:00 05/15/25 12:00 05/15/25 11:57 05/15/25 11:57 05/15/25 11:55 05/15/25 11:55 05/15/25 11:54 05/15/25 11:51 05/15/25 11:50 05/15/25 11:50 05/15/25 11:50 05/15/25 11:50 05/15/25 11:45 05/15/25 11:37 Room Air 05/15/25 11:37 Room Air 05/15/25 11:30 05/15/25 11:30 05/15/25 11:21 05/15/25 11:15 05/15/25 11:09 05/15/25 11:00 05/15/25 10:57 05/15/25 10:54 05/15/25 10:42 05/15/25 10:37 05/15/25 10:37 05/15/25 10:15 05/15/25 10:13 05/15/25 10:13 05/15/25 10:03 05/15/25 10:01 05/15/25 10:01 05/15/25 10:00 05/15/25 09:54 05/15/25 09:42 05/15/25 09:21 05/15/25 09:18 05/15/25 09:00 05/15/25 09:00 05/15/25 08:48 05/15/25 08:42 05/15/25 08:39 05/15/25 08:15 05/15/25 08:11 05/15/25 08:00 05/15/25 08:00 05/15/25 08:00 05/15/25 07:55 Room Air 0 05/15/25 07:51 05/15/25 07:39 Room Air Transfer of Care Handoff Completed per policy Notes Mental Status: alert / awake / arousable and participated in evaluation Patient Amnestic to Procedure: Yes Nausea / Vomiting: adequately controlled Pain: adequately controlled Airway Patency, RR, SpO2: stable & adequate BP & HR: stable & adequate Hydration State: stable & adequate Anesthetic Complications: no major complications apparent and Pt Satisfied with anesthetic care
[2025-05-15] MEDS ORDERED: POLYETHYLENE (MIRALAX) 17 GM PACK PO PRN (14:21)
[2025-05-15 15:56] LABS: Anion Gap 6.0 (3-11); Calcium 7.9 mg/dl (8.6-10.3); Carbon Dioxide 22.0 mmol/L (21-32); Chloride 111.0 mmol/L (98-107); Magnesium 1.6 mg/dl (1.7-2.4); Potassium 3.8 mmol/L (3.5-5.1); Sodium 139.0 mmol/L (136-145)
[2025-05-15 16:02] LABS: Blood Urea Nitrogen 29.0 mg/dl (6-23); Creatinine Clr Calc Pharmacy 82.4 ml/min; Glucose 100.0 mg/dl (70-99(Fasting))
[2025-05-15 16:07] LABS: Hematocrit (blood only) 30.9 % (37.0-47.0); Hemoglobin 10.4 g/dl (12.0-16.0); Mean Corpuscular Hemoglobin 29.5 pg (25.0-34.0); Mean Corpuscular Volume 87.5 fL (80.0-100.0); Platelet Count 188 K/uL (130-400); RDW Standard Deviation 47.0 fL (36.4-46.3); Red Blood Count 3.53 M/uL (4.20-5.40); White Blood Count 10.59 K/ul (4.8-10.8)
--- NOTE | 2025-05-15 17:37 | Billing Data ---
Date of Service May 15, 2025 Coding Level of Care Code 88252 CRITICAL CARE
[2025-05-15] MEDS: ACETAMINOPHEN 325 MG TAB PO PRN (18:06)
[2025-05-15 18:13] LABS: Hematocrit (blood only) 28.3 % (37.0-47.0); Hemoglobin 9.7 g/dl (12.0-16.0)
[2025-05-15] MEDS ORDERED: SODIUM PHOSPHATE 3 MMOL/1 ML INFUSION IV STA (18:55)
[2025-05-15] MEDS: SODIUM PHOSPHATE 9 MMOL in SODIUM CHLORIDE 0.9% 250 ML IV ONE (19:52)
[2025-05-15] MEDS: MAGNESIUM SULFATE / D5W 1 GM/100 ML BAG IV SCH (19:53)
[2025-05-15] MEDS ORDERED: PANTOprazole 40 MG/10 ML SYR IV SCH (21:00)
[2025-05-15] MEDS: SIMVASTATIN 20 MG TAB PO SCH (21:36)
[2025-05-16 00:04] LABS: Hematocrit (blood only) 26.8 % (37.0-47.0); Hemoglobin 9.2 g/dl (12.0-16.0)
[2025-05-16 05:43] LABS: Hematocrit (blood only) 27.9 % (37.0-47.0); Hemoglobin 9.5 g/dl (12.0-16.0); Immature Granulocytes # (auto) 0.03 K/uL (0.01-0.20); Immature Granulocytes % (auto) 0.4 %; Mean Corpuscular Hemoglobin 29.1 pg (25.0-34.0); Mean Corpuscular Volume 85.3 fL (80.0-100.0); Platelet Count 174 K/uL (130-400); RDW Standard Deviation 46.5 fL (36.4-46.3); Red Blood Count 3.27 M/uL (4.20-5.40); White Blood Count 6.78 K/ul (4.8-10.8)
[2025-05-16] MEDS: LEVOTHYROXINE SODIUM 100 MCG TABLET PO SCH (05:48)
[2025-05-16 05:56] LABS: Anion Gap 6.0 (3-11); Blood Urea Nitrogen 19.0 mg/dl (6-23); Calcium 8.0 mg/dl (8.6-10.3); Carbon Dioxide 26.0 mmol/L (21-32); Chloride 110.0 mmol/L (98-107); Creatinine Clr Calc Pharmacy 79.0 ml/min; Glucose 93.0 mg/dl (70-99(Fasting)); Magnesium 2.1 mg/dl (1.7-2.4); Potassium 3.4 mmol/L (3.5-5.1); Sodium 142.0 mmol/L (136-145)
--- NOTE | 2025-05-16 07:11 | Gastroenterology Progress Note ---
Date of Service May 16, 2025 Assessment & Plan (1) GI bleeding: Plan: Secondary to Dieulafoy lesion treated endoscopically with endoclips. Hemodynamically stable no signs of active bleeding. Can advance to clear liquid diet. Continue PPI and monitor hemoglobin hematocrit. Would like to observe in the hospital for at least another 24 hours. Admission and Anticipated Discharge Date Admission Date: May 15, 2025 Subjective Resting comfortably no abdominal pain. No shortness of breath no chest pain. Had an episode of black bowel movements likely old blood. Physical Exam Physical Exam: No acute distress Respiratory rate regular Cardiac rhythm regular Abdomen soft nontender Results & Data Results & Data Vital Signs (Past 12 Hours) Vital Signs Temp Pulse Resp BP Pulse Ox 05/16/25 06:05 116/76 05/16/25 06:03 78 14 96 05/16/25 05:21 75 0 L 96 05/16/25 05:12 74 0 L 96 05/16/25 05:05 108/74 05/16/25 05:03 74 14 96 05/16/25 03:00 71 17 103/73 98 05/16/25 02:05 113/72 05/16/25 02:03 74 20 97 05/16/25 01:05 125/74 05/16/25 00:54 76 12 98 05/16/25 00:05 118/73 05/16/25 00:00 87 16 97 05/15/25 23:59 82 05/15/25 23:30 83 4 L 96 05/15/25 23:27 89 13 98 05/15/25 23:15 84 16 97 05/15/25 23:05 116/76 05/15/25 23:05 116/76 05/15/25 23:05 116/76 05/15/25 23:05 116/76 05/15/25 23:00 81 12 96 05/15/25 22:16 37.3 C 05/15/25 22:00 94 H 23 124/77 100 05/15/25 21:13 103/63 05/15/25 21:00 86 20 97 05/15/25 20:25 86 05/15/25 20:13 110/65 05/15/25 20:00 91 H 12 98 05/15/25 19:13 115/76 Laboratory Results Laboratory Results - last 48 hr 05/15/25 05/15/2505/15/25 07:50 08:10 10:23 WBC 10.74 RBC 3.21 L Hgb 9.3 L D Hct 28.3 L MCV 88.2 MCH 29.0 MCHC 32.9 RDW Std Deviation 45.1 RDW Coeff of Kevin 14.0 Plt Count 334 MPV 10.6 Immature Gran % (Auto) 0.6 Neut % (Auto) 69.6 Lymph % (Auto) 23.8 [place] % (Auto) 5.1 Eos % (Auto) 0.5 Baso % (Auto) 0.4 Neut # (Auto) 7.48 H Lymph # (Auto) 2.56 [place] # (Auto) 0.55 Eos # (Auto) 0.05 Baso # (Auto) 0.04 Immature Gran # (Auto) 0.06 Absolute Nucleated RBC Nucleated RBC % (auto) Platelet Estimate PT INR APTT PTT Ratio Fibrinogen D-Dimer VBG pH VBG pCO2 VBG pO2 VBG HCO3 VBG O2 Saturation VBG Base Excess Sodium 139 Potassium 4.0 Chloride 108 H Carbon Dioxide 26 Anion Gap 5 BUN 37 H Creatinine 0.71 Est Cr Clr Drug Dosing 70.8 eGFR 92.56 BUN/Creatinine Ratio 52.1 H Glucose 112 H Lactate Calcium 8.8 Ionized Calcium Phosphorus Magnesium 1.8 Total Bilirubin 0.4 AST 14 ALT 9 Alkaline Phosphatase 51 Troponin I High Sens < 2.3 Total Protein 6.3 Albumin 3.9 Globulin 2.4 L Albumin/Globulin Ratio 1.6 TSH 0.345 Nasal Screen MRSA (PCR) Adenovirus (PCR) Not Detected B. pertussis DNA (PCR) Not Detected B.parapertussis DNA PCR Not Detected C. pneumoniae DNA (PCR) Not Detected Coronavirus OC43 (PCR) Not Detected Coronavirus HKU1 (PCR) Not Detected Coronavirus 229E (PCR) Not Detected SARS-CoV-2 (PCR) Not Detected Coronavirus NL63 (PCR) Not Detected Human Metapneumovir PCR Not Detected Influenza Type A (PCR) Not Detected Influenza Type B (PCR) Not Detected M. pneumoniae (PCR) Not Detected Parainfluenza 1 (PCR) Not Detected Parainfluenza 2 (PCR) Not Detected Parainfluenza 3 (PCR) Not Detected Parainfluenza 4 (PCR) Not Detected RSV (PCR) Not Detected Entero/Rhino (PCR) Not Detected Blood Type O Positive Antibody Screen NEGATIVE Crossmatch See Detail 05/15/25 05/15/25 05/15/25 10:24 11:21 11:21 WBC 7.17 Cancelled RBC 2.17 L Hgb Hct MCV MCH MCHC RDW Std Deviation RDW Coeff of Kevin Plt Count MPV Immature Gran % (Auto) Neut % (Auto) Lymph % (Auto) [place] % (Auto) Eos % (Auto) Baso % (Auto) Neut # (Auto) Lymph # (Auto) [place] # (Auto) Eos # (Auto) Baso # (Auto) Immature Gran # (Auto) Absolute Nucleated RBC Nucleated RBC % (auto) Platelet Estimate PT INR APTT PTT Ratio Fibrinogen D-Dimer VBG pH VBG pCO2 VBG pO2 VBG HCO3 VBG O2 Saturation VBG Base Excess Sodium Potassium Chloride Carbon Dioxide Anion Gap BUN Creatinine Est Cr Clr Drug Dosing eGFR BUN/Creatinine Ratio Glucose Lactate 1.6 Calcium Ionized Calcium Phosphorus Magnesium Total Bilirubin AST ALT Alkaline Phosphatase Troponin I High Sens Total Protein Albumin Globulin Albumin/Globulin Ratio TSH Nasal Screen MRSA (PCR) Adenovirus (PCR) B. pertussis DNA (PCR) B.parapertussis DNA PCR C. pneumoniae DNA (PCR) Coronavirus OC43 (PCR) Coronavirus HKU1 (PCR) Coronavirus 229E (PCR) SARS-CoV-2 (PCR) Coronavirus NL63 (PCR) Human Metapneumovir PCR Influenza Type A (PCR) Influenza Type B (PCR) M. pneumoniae (PCR) Parainfluenza 1 (PCR) Parainfluenza 2 (PCR) Parainfluenza 3 (PCR) Parainfluenza 4 (PCR) RSV (PCR) Entero/Rhino (PCR) Blood Type Antibody Screen Crossmatch 05/15/25 05/15/25 05/15/25 11:21 11:21 11:21 WBC RBC Cancelled Hgb 6.4 L* D Cancelled Hct 19.3 L* Cancelled MCV 88.9 MCH MCHC RDW Std Deviation RDW Coeff of Kevin Plt Count MPV Immature Gran % (Auto) Neut % (Auto) Lymph % (Auto) [place] % (Auto) Eos % (Auto) Baso % (Auto) Neut # (Auto) Lymph # (Auto) [place] # (Auto) Eos # (Auto) Baso # (Auto) Immature Gran # (Auto) Absolute Nucleated RBC Nucleated RBC % (auto) Platelet Estimate PT INR APTT PTT Ratio Fibrinogen D-Dimer VBG pH VBG pCO2 VBG pO2 VBG HCO3 VBG O2 Saturation VBG Base Excess Sodium Potassium Chloride Carbon Dioxide Anion Gap BUN Creatinine Est Cr Clr Drug Dosing eGFR BUN/Creatinine Ratio Glucose Lactate Calcium Ionized Calcium Phosphorus Magnesium Total Bilirubin AST ALT Alkaline Phosphatase Troponin I High Sens Total Protein Albumin Globulin Albumin/Globulin Ratio TSH Nasal Screen MRSA (PCR) Adenovirus (PCR) B. pertussis DNA (PCR) B.parapertussis DNA PCR C. pneumoniae DNA (PCR) Coronavirus OC43 (PCR) Coronavirus HKU1 (PCR) Coronavirus 229E (PCR) SARS-CoV-2 (PCR) Coronavirus NL63 (PCR) Human Metapneumovir PCR Influenza Type A (PCR) Influenza Type B (PCR) M. pneumoniae (PCR) Parainfluenza 1 (PCR) Parainfluenza 2 (PCR) Parainfluenza 3 (PCR) Parainfluenza 4 (PCR) RSV (PCR) Entero/Rhino (PCR) Blood Type Antibody Screen Crossmatch 05/15/25 05/15/25 05/15/25 11:21 11:21 11:21 WBC RBC Hgb Hct MCV Cancelled MCH 29.5 Cancelled MCHC 33.2 Cancelled RDW Std Deviation 45.8 RDW Coeff of Kevin Plt Count MPV Immature Gran % (Auto) Neut % (Auto) Lymph % (Auto) [place] % (Auto) Eos % (Auto) Baso % (Auto) Neut # (Auto) Lymph # (Auto) [place] # (Auto) Eos # (Auto) Baso # (Auto) Immature Gran # (Auto) Absolute Nucleated RBC Nucleated RBC % (auto) Platelet Estimate PT INR APTT PTT Ratio Fibrinogen D-Dimer VBG pH VBG pCO2 VBG pO2 VBG HCO3 VBG O2 Saturation VBG Base Excess Sodium Potassium Chloride Carbon Dioxide Anion Gap BUN Creatinine Est Cr Clr Drug Dosing eGFR BUN/Creatinine Ratio Glucose Lactate Calcium Ionized Calcium Phosphorus Magnesium Total Bilirubin AST ALT Alkaline Phosphatase Troponin I High Sens Total Protein Albumin Globulin Albumin/Globulin Ratio TSH Nasal Screen MRSA (PCR) Adenovirus (PCR) B. pertussis DNA (PCR) B.parapertussis DNA PCR C. pneumoniae DNA (PCR) Coronavirus OC43 (PCR) Coronavirus HKU1 (PCR) Coronavirus 229E (PCR) SARS-CoV-2 (PCR) Coronavirus NL63 (PCR) Human Metapneumovir PCR Influenza Type A (PCR) Influenza Type B (PCR) M. pneumoniae (PCR) Parainfluenza 1 (PCR) Parainfluenza 2 (PCR) Parainfluenza 3 (PCR) Parainfluenza 4 (PCR) RSV (PCR) Entero/Rhino (PCR) Blood Type Antibody Screen Crossmatch 05/15/25 05/15/25 05/15/25 11:21 11:21 11:21 WBC RBC Hgb Hct MCV MCH MCHC RDW Std Deviation Cancelled RDW Coeff of Kevin 14.1 Cancelled Plt Count 202 Cancelled MPV 10.8 Immature Gran % (Auto) Neut % (Auto) Lymph % (Auto) [place] % (Auto) Eos % (Auto) Baso % (Auto) Neut # (Auto) Lymph # (Auto) [place] # (Auto) Eos # (Auto) Baso # (Auto) Immature Gran # (Auto) Absolute Nucleated RBC Nucleated RBC % (auto) Platelet Estimate PT INR APTT PTT Ratio Fibrinogen D-Dimer VBG pH VBG pCO2 VBG pO2 VBG HCO3 VBG O2 Saturation VBG Base Excess Sodium Potassium Chloride Carbon Dioxide Anion Gap BUN Creatinine Est Cr Clr Drug Dosing eGFR BUN/Creatinine Ratio Glucose Lactate Calcium Ionized Calcium Phosphorus Magnesium Total Bilirubin AST ALT Alkaline Phosphatase Troponin I High Sens Total Protein Albumin Globulin Albumin/Globulin Ratio TSH Nasal Screen MRSA (PCR) Adenovirus (PCR) B. pertussis DNA (PCR) B.parapertussis DNA PCR C. pneumoniae DNA (PCR) Coronavirus OC43 (PCR) Coronavirus HKU1 (PCR) Coronavirus 229E (PCR) SARS-CoV-2 (PCR) Coronavirus NL63 (PCR) Human Metapneumovir PCR Influenza Type A (PCR) Influenza Type B (PCR) M. pneumoniae (PCR) Parainfluenza 1 (PCR) Parainfluenza 2 (PCR) Parainfluenza 3 (PCR) Parainfluenza 4 (PCR) RSV (PCR) Entero/Rhino (PCR) Blood Type Antibody Screen Crossmatch 05/15/25 05/15/25 05/15/25 11:21 12:23 15:00 WBC 10.59 RBC 3.53 L Hgb 10.4 L D Hct 30.9 L MCV 87.5 MCH 29.5 MCHC 33.7 RDW Std Deviation 47.0 H RDW Coeff of Kevin 14.6 H Plt Count 188 MPV Cancelled 10.8 Immature Gran % (Auto) Neut % (Auto) Lymph % (Auto) [place] % (Auto) Eos % (Auto) Baso % (Auto) Neut # (Auto) Lymph # (Auto) [place] # (Auto) Eos # (Auto) Baso # (Auto) Immature Gran # (Auto) Absolute Nucleated RBC Cancelled Nucleated RBC % (auto) Cancelled Platelet Estimate Cancelled PT 11.8 INR 1.1 APTT 25 PTT Ratio 0.9 Fibrinogen 180 L D-Dimer 600 H* VBG pH 7.35 L VBG pCO2 38 VBG pO2 32 VBG HCO3 21 VBG O2 Saturation 63.7 VBG Base Excess -4.2 Sodium 136 139 Potassium 4.3 3.8 Chloride 109 H 111 H Carbon Dioxide 24 22 Anion Gap 3 6 BUN 36 H 29 H Creatinine 0.62 0.61 Est Cr Clr Drug Dosing 81.1 82.4 eGFR 96.94 97.32 BUN/Creatinine Ratio 58.1 H 47.5 H Glucose 138 H 100 H Lactate 1.9 Calcium 7.5 L 7.9 L Ionized Calcium 1.11 L Phosphorus 2.2 L Magnesium 1.6 L Total Bilirubin AST ALT Alkaline Phosphatase Troponin I High Sens Total Protein Albumin Globulin Albumin/Globulin Ratio TSH Nasal Screen MRSA (PCR) Adenovirus (PCR) B. pertussis DNA (PCR) B.parapertussis DNA PCR C. pneumoniae DNA (PCR) Coronavirus OC43 (PCR) Coronavirus HKU1 (PCR) Coronavirus 229E (PCR) SARS-CoV-2 (PCR) Coronavirus NL63 (PCR) Human Metapneumovir PCR Influenza Type A (PCR) Influenza Type B (PCR) M. pneumoniae (PCR) Parainfluenza 1 (PCR) Parainfluenza 2 (PCR) Parainfluenza 3 (PCR) Parainfluenza 4 (PCR) RSV (PCR) Entero/Rhino (PCR) Blood Type Antibody Screen Crossmatch 05/15/25 05/15/25 05/15/25 17:53 23:47 Unknown WBC RBC Hgb 9.7 L 9.2 L Hct 28.3 L 26.8 L MCV MCH MCHC RDW Std Deviation RDW Coeff of Kevin Plt Count MPV Immature Gran % (Auto) Neut % (Auto) Lymph % (Auto) [place] % (Auto) Eos % (Auto) Baso % (Auto) Neut # (Auto) Lymph # (Auto) [place] # (Auto) Eos # (Auto) Baso # (Auto) Immature Gran # (Auto) Absolute Nucleated RBC Nucleated RBC % (auto) Platelet Estimate PT INR APTT PTT Ratio Fibrinogen D-Dimer VBG pH VBG pCO2 VBG pO2 VBG HCO3 VBG O2 Saturation VBG Base Excess Sodium Potassium Chloride Carbon Dioxide Anion Gap BUN Creatinine Est Cr Clr Drug Dosing eGFR BUN/Creatinine Ratio Glucose Lactate Calcium Ionized Calcium Phosphorus Magnesium Total Bilirubin AST ALT Alkaline Phosphatase Troponin I High Sens Total Protein Albumin Globulin Albumin/Globulin Ratio TSH Nasal Screen MRSA (PCR) Negative Adenovirus (PCR) B. pertussis DNA (PCR) B.parapertussis DNA PCR C. pneumoniae DNA (PCR) Coronavirus OC43 (PCR) Coronavirus HKU1 (PCR) Coronavirus 229E (PCR) SARS-CoV-2 (PCR) Coronavirus NL63 (PCR) Human Metapneumovir PCR Influenza Type A (PCR) Influenza Type B (PCR) M. pneumoniae (PCR) Parainfluenza 1 (PCR) Parainfluenza 2 (PCR) Parainfluenza 3 (PCR) Parainfluenza 4 (PCR) RSV (PCR) Entero/Rhino (PCR) Blood Type Antibody Screen Crossmatch 05/16/25 04:25 WBC 6.78 RBC 3.27 L Hgb 9.5 L Hct 27.9 L MCV 85.3 MCH 29.1 MCHC 34.1 RDW Std Deviation 46.5 H RDW Coeff of Kevin 15.2 H Plt Count 174 MPV 11.0 Immature Gran % (Auto) 0.4 Neut % (Auto) 62.3 Lymph % (Auto) 27.6 [place] % (Auto) 8.3 Eos % (Auto) 0.7 Baso % (Auto) 0.7 Neut # (Auto) 4.22 Lymph # (Auto) 1.87 [place] # (Auto) 0.56 Eos # (Auto) 0.05 Baso # (Auto) 0.05 Immature Gran # (Auto) 0.03 Absolute Nucleated RBC Nucleated RBC % (auto) Platelet Estimate PT INR APTT PTT Ratio Fibrinogen D-Dimer VBG pH VBG pCO2 VBG pO2 VBG HCO3 VBG O2 Saturation VBG Base Excess Sodium 142 Potassium 3.4 L Chloride 110 H Carbon Dioxide 26 Anion Gap 6 BUN 19 Creatinine 0.65 Est Cr Clr Drug Dosing 79.0 eGFR 95.84 BUN/Creatinine Ratio 29.2 H Glucose 93 Lactate Calcium 8.0 L Ionized Calcium Phosphorus 2.4 L Magnesium 2.1 Total Bilirubin AST ALT Alkaline Phosphatase Troponin I High Sens Total Protein Albumin Globulin Albumin/Globulin Ratio TSH Nasal Screen MRSA (PCR) Adenovirus (PCR) B. pertussis DNA (PCR) B.parapertussis DNA PCR C. pneumoniae DNA (PCR) Coronavirus OC43 (PCR) Coronavirus HKU1 (PCR) Coronavirus 229E (PCR) SARS-CoV-2 (PCR) Coronavirus NL63 (PCR) Human Metapneumovir PCR Influenza Type A (PCR) Influenza Type B (PCR) M. pneumoniae (PCR) Parainfluenza 1 (PCR) Parainfluenza 2 (PCR) Parainfluenza 3 (PCR) Parainfluenza 4 (PCR) RSV (PCR) Entero/Rhino (PCR) Blood Type Antibody Screen Crossmatch PG Care Time/CCT Total # of Minutes Spent Total Time Spent with Patient: Total time spent is greater than 50% in coordination of care (as documented) at patient's floor/unit and/or counseling patient: Coding Level of Care Code 57010 SUB INP/OBS CARE 3/50MIN Diagnoses GI bleeding K92.2
--- NOTE | 2025-05-16 09:29 | Critical Care Progress Note ---
Date of Service May 16, 2025 Assessment & Plan (1) Acute blood loss anemia: (2) GI bleeding: (3) Hypothyroidism: (4) HLD (hyperlipidemia): Plan Patient is a 70yo F w/ PMH notable for hypothyroidism, diverticulosis, and HLD who presented to the ER on 05/15 with melena and syncope, and was found to have a significant drop in Hgb. Imaging was consistent with active GI bleeding. [facility] IR recommended EGD emergently to evaluate bleed, after which patient was moved to ICU for monitoring and further management. Now vitals stable and hgb stable >9, and patient is appropriate for downgrade from ICU. Neuro CAM ICU - negative RASS - goal 0 Pulm No acute concerns CXR 05/14 did show hyperexpanded lungs, without pneumonia Patient maintaining SpO2 > 90% on room air. CV Patient initially tachycardiac and hypotensive, but BP corrected after IV fluids and HR normalized after procedure. Trop wnl. EKG without ischemic changes. Continue simvastatin 20mg daily FEN/GI Given 1L LR in ER. Given 25mg meclizine, 80 + 40 mg Protonix, and 10mg Reglan. GI consulted, performed emergent EGD (detailed below). Advance diet as tolerated, starting from clear liquids Will start Protonix 40mg BID for 1 month. Will need outpatient f/u with GI Renal/lytes No severe electrolyte derangements. Cr 0.65. BUN now improved to 19. Heme/Onc Hgb on 05/14 was 12.9 and dropped to 6.4 on 05/15 in ED. Patient was given 3 units pRBCs and 2 units FFP. CTA abd/pelvis showed a 1.8 cm hyperdense focus within the posterior gastric antrum, consistent with an active GI bleed. BUN was elevated to 36, also consistent with GIB. Coags normal. VBG unremarkable. Emergent EGD on 05/15 showed Dieulafoy lesion with signs of recent bleeding in the gastric antrum. Lesion was removed w/ 3 clips placed for hemostasis. Patient now hemodynamically stable and hgb remains > 9, most recent value 9.5. Endo TSH 0.345. Continue levothyroxine 100 mcg daily ID Afebrile, no leukocytosis, RPP negative Lines and tubes: 2 large-bore IVs in place VTE prophylaxis: SCDs Code: FULL Dispo: Downgrade from ICU today. Admission and Anticipated Discharge Date Admission Date: May 15, 2025 Supervising Physician Co-Signing Physician Notes Dr. Rivera was resident physician during care of patient. I separately evaluated patient for jaimes portions of the history and the exam. I was present during the critical portion of medical decision making, and I discussed the case with the resident. I generally agree with the findings and plan. Initial response to transfuse blood was more than adequate, H&H remained stable. Stable for downgrade out of ICU. Subjective NAEO. Patient seen and examined at bedside this morning. Feeling well. Denies CP, SOB, abd pain, weakness, fatigue. Does mention some swelling in her hands, which seems to improve with movement. Ate about half of breakfast, voiding w/o issue, 1x BM overnight (black, formed). Aware and accepting of plan for downgrade today Review of Systems Constitutional: no fever, no sweats, no body aches, no fatigue and no weakness Ear, Nose, Mouth, Throat: no sore throat and no hoarseness Respiratory: no dyspnea Cardiovascular: no chest pain, no palpitations and no lightheadedness Gastrointestinal: no abdominal pain, no bloating, no nausea and no melena (last episode 05/14) Genitourinary: no hematuria Musculoskeletal: no body aches Integumentary: no rash and no bleeding lesions Neurologic: no tingling, no numbness, no lack of coordination and no headache(s) Physical Exam Constitutional: WD/WN, vitals as above no acute distress Eyes: PERRL, conjunctivae normal, anicteric sclerae ENMT: external ear and nose normal, oropharynx normal Neck: trachea midline, no thyromegaly Respiratory: normal respiratory effort, lungs clear to auscultation Cardiovascular: RRR, no murmur, no edema Gastrointestinal (Abdomen): Inspection/Auscultation: normal bowel sounds; abdomen not distended Percussion/Palpation: abdomen soft; abdomen nontender, no guarding, abdomen not rigid and no abdominal mass Musculoskeletal: no cyanosis or clubbing, extremities motor strength 5/5 Head/Neck/Chest: normocephalic and head atraumatic mild swelling of all fingers - normal ROM, no pain, no joint swelling Skin: no rashes, warm and dry Neurologic: PERRL, EOMI, accommodation nl, no face palsy, no dysarthria Motor/Sensory: no tremor and no sensory deficit Psychiatric: A+Ox3, euthymic affect Results & Data Results & Data Vital Signs (Past 12 Hours) Vital Signs Temp Pulse Resp BP Pulse Ox 05/16/25 06:05 116/76 05/16/25 06:03 78 14 96 05/16/25 05:21 75 0 L 96 05/16/25 05:12 74 0 L 96 05/16/25 05:05 108/74 05/16/25 05:03 74 14 96 05/16/25 03:00 71 17 103/73 98 05/16/25 02:05 113/72 05/16/25 02:03 74 20 97 05/16/25 01:05 125/74 05/16/25 00:54 76 12 98 05/16/25 00:05 118/73 05/16/25 00:00 87 16 97 05/15/25 23:59 82 05/15/25 23:30 83 4 L 96 05/15/25 23:27 89 13 98 05/15/25 23:15 84 16 97 05/15/25 23:05 116/76 05/15/25 23:05 116/76 05/15/25 23:05 116/76 05/15/25 23:05 116/76 05/15/25 23:00 81 12 96 05/15/25 22:16 37.3 C 05/15/25 22:00 94 H 23 124/77 100 Resident Activity Tracking Resident Involvement: Resident Care Provided Care Provided: Adult Hospital Medicine
--- NOTE | 2025-05-16 10:06 | Billing Data ---
Date of Service May 16, 2025 Coding Level of Care Code 23659 SUB INP/OBS CARE
[2025-05-16 11:55] LABS: Hematocrit (blood only) 29.3 % (37.0-47.0); Hemoglobin 9.9 g/dl (12.0-16.0)
[2025-05-16] MEDS: POTASSIUM CHLORIDE CRTAB 20 MEQ TABCR PO STA ×2 (12:43→13:19)
--- NOTE | 2025-05-16 13:05 | Hospitalist Progress Note ---
Date of Service May 16, 2025 Assessment & Plan (1) Acute blood loss anemia: Plan: Acute blood loss anemia Upper GI bleed Hypovolemic shock Patient presented to the hospital with dizziness, melanotic stool Hemoglobin down trended from 12.9-6.4 in 24 hours Status post 3 packed RBC transfusion along with 2 FFP as per massive transfusion protocol CTA abdomen concerning for GI bleed and patient taken to EGD emergently EGD on 05/15 showed dieulafoy lesion with oozing bleeding and stigmata of recent bleeding; was injected with epinephrine and 3 hemostatic clips successfully placed with the stoppage of the bleeding. Continue PPI twice daily Continue on clear liquid diet and monitor for rebleeding Patient transferred out of the ICU (2) Melena: Plan: -see above (3) Hypothyroidism: Plan: -continue levothyroxine (4) HLD (hyperlipidemia): Plan: -continue simvastatin Plan Time spent evaluating patient, direct bedside care, chart review, placing orders, interpretation of diagnostic studies, discussion with consultants, patient, and family members, as well as other required patient management activities is 61 minutes Admission and Anticipated Discharge Date Admission Date: May 15, 2025 Subjective Patient seen and examined at bedside. She is comfortable; not in distress She has not had any vomiting or bowel movement yet Hemodynamics are stable Review of Systems Review of Systems: All systems reviewed & are unremarkable except as noted in Subjective Physical Exam Physical Exam: Constitutional: WD/WN, vitals as above, NAD, sitting up in bed, pleasant, conversing easily Respiratory: normal respiratory effort, lungs clear to auscultation, no wheeze, rales, rhonchi. Normal insp/exp effort, no accessory muscle use Cardiovascular: RRR, no murmur, no edema Vessels: no JVD or carotid bruit Chest: normal inspection of chest Abdomen: normal bowel sounds, soft, nontender, no hepatosplenomegaly Musculoskeletal: no cyanosis or clubbing, extremities motor strength 5/5 Skin: no rashes, warm and dry normal turgor Neurologic: PERRL, EOMI, accommodation nl, no face palsy, no dysarthria CN's II- XI intact bilaterally and moves all extremities Psychiatric: A+Ox3, euthymic affect Results & Data Results & Data Vital Signs (Past 12 Hours) Vital Signs Temp Pulse Resp BP Pulse Ox 05/16/25 12:51 36.8 C 05/16/25 10:00 87 22 96 05/16/25 09:36 91 H 15 96 05/16/25 08:00 76 4 L 116/77 96 05/16/25 06:05 116/76 05/16/25 06:03 78 14 96 05/16/25 05:21 75 0 L 96 05/16/25 05:12 74 0 L 96 05/16/25 05:05 108/74 05/16/25 05:03 74 14 96 05/16/25 03:00 71 17 103/73 98 05/16/25 02:05 113/72 05/16/25 02:03 74 20 97 05/16/25 01:05 125/74
[2025-05-16] MEDS: PANTOprazole 40 MG/10 ML SYR IV SCH (13:19)
--- NOTE | 2025-05-16 22:30 | Electrocardiogram Report ---
Test Reason : Blood Pressure : */* mmHG Vent. Rate : 101 BPM Atrial Rate : 101 BPM P-R Int : 162 ms QRS Dur : 76 ms QT Int : 328 ms P-R-T Axes : * 0 -17 degrees QTcB Int : 425 ms Sinus tachycardia Otherwise normal ECG When compared with ECG of 14-May-2025 08:45, No significant change was found Confirmed by David Kenyon ([id number]) on 05/16/2025 10:30:48 PM Referred By: REFERRED SELF Confirmed By: David Kenyon
[2025-05-17 07:18] LABS: Hematocrit (blood only) 29.2 % (37.0-47.0); Hemoglobin 10.1 g/dl (12.0-16.0); Mean Corpuscular Hemoglobin 29.2 pg (25.0-34.0); Mean Corpuscular Volume 84.4 fL (80.0-100.0); Platelet Count 167 K/uL (130-400); RDW Standard Deviation 45.0 fL (36.4-46.3); Red Blood Count 3.46 M/uL (4.20-5.40); White Blood Count 7.00 K/ul (4.8-10.8)
[2025-05-17 07:19] LABS: Anion Gap 6.0 (3-11); Blood Urea Nitrogen 12.0 mg/dl (6-23); Calcium 8.6 mg/dl (8.6-10.3); Carbon Dioxide 26.0 mmol/L (21-32); Chloride 108.0 mmol/L (98-107); Creatinine Clr Calc Pharmacy 76.7 ml/min; Glucose 96.0 mg/dl (70-99(Fasting)); Immature Granulocytes # (auto) 0.04 K/uL (0.01-0.20); Immature Granulocytes % (auto) 0.6 %; Polychromasia 1+; Potassium 3.7 mmol/L (3.5-5.1); Sodium 140.0 mmol/L (136-145); Toxic Vacuolation 1+
--- NOTE | 2025-05-17 07:54 | Gastroenterology Progress Note ---
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 No further bleeding. Okay to advance diet. Recommend a low residue diet for the next week. Continue PPI. We will have her follow-up as an outpatient in a few weeks. Admission and Anticipated Discharge Date Admission Date: May 15, 2025 Subjective Transferred out of ICU doing well on regular medical floor no further bleeding no abdominal pain shortness of breath or chest pain Physical Exam Physical Exam: No acute distress Respiratory rate regular Cardiac rhythm regular Abdomen soft nontender Results & Data Results & Data Vital Signs (Past 12 Hours) Vital Signs Temp Pulse Pulse Resp BP Pulse Ox O2 Del Method 05/17/25 07:30 78 05/17/25 04:00 36.8 C 73 16 103/68 96 Room Air 05/16/25 21:51 86 05/16/25 20:15 36.7 C 84 19 123/76 96 Room Air Laboratory Results Laboratory Results - last 48 hr 05/15/25 05/15/25 05/15/25 07:50 08:10 10:23 WBC 10.74 RBC 3.21 L Hgb 9.3 L D Hct 28.3 L MCV 88.2 MCH 29.0 MCHC 32.9 RDW Std Deviation 45.1 RDW Coeff of Kevin 14.0 Plt Count 334 MPV 10.6 Immature Gran % (Auto) 0.6 Neut % (Auto) 69.6 Lymph % (Auto) 23.8 Rutherford % (Auto) 5.1 Eos % (Auto) 0.5 Baso % (Auto) 0.4 Neut # (Auto) 7.48 H Lymph # (Auto) 2.56 Rutherford # (Auto) 0.55 Eos # (Auto) 0.05 Baso # (Auto) 0.04 Immature Gran # (Auto) 0.06 Absolute Nucleated RBC Nucleated RBC % (auto) Toxic Vacuolation Platelet Estimate Polychromasia PT INR APTT PTT Ratio Fibrinogen D-Dimer VBG pH VBG pCO2 VBG pO2 VBG HCO3 VBG O2 Saturation VBG Base Excess Sodium 139 Potassium 4.0 Chloride 108 H Carbon Dioxide 26 Anion Gap 5 BUN 37 H Creatinine 0.71 Est Cr Clr Drug Dosing 70.8 eGFR 92.56 BUN/Creatinine Ratio 52.1 H Glucose 112 H Lactate Calcium 8.8 Ionized Calcium Phosphorus Magnesium 1.8 Total Bilirubin 0.4 AST 14 ALT 9 Alkaline Phosphatase 51 Troponin I High Sens < 2.3 Total Protein 6.3 Albumin 3.9 Globulin 2.4 L Albumin/Globulin Ratio 1.6 TSH 0.345 Nasal Screen MRSA (PCR) Adenovirus (PCR) Not Detected B. pertussis DNA (PCR) Not Detected B.parapertussis DNA PCR Not Detected C. pneumoniae DNA (PCR) Not Detected Coronavirus OC43 (PCR) Not Detected Coronavirus HKU1 (PCR) Not Detected Coronavirus 229E (PCR) Not Detected SARS-CoV-2 (PCR) Not Detected Coronavirus NL63 (PCR) Not Detected Human Metapneumovir PCR Not Detected Influenza Type A (PCR) Not Detected Influenza Type B (PCR) Not Detected M. pneumoniae (PCR) Not Detected Parainfluenza 1 (PCR) Not Detected Parainfluenza 2 (PCR) Not Detected Parainfluenza 3 (PCR) Not Detected Parainfluenza 4 (PCR) Not Detected RSV (PCR) Not Detected Entero/Rhino (PCR) Not Detected Blood Type O Positive Antibody Screen NEGATIVE Crossmatch See Detail 05/15/25 05/15/25 05/15/25 10:24 11:21 11:21 WBC 7.17 Cancelled RBC 2.17 L Hgb Hct MCV MCH MCHC RDW Std Deviation RDW Coeff of Kevin Plt Count MPV Immature Gran % (Auto) Neut % (Auto) Lymph % (Auto) Rutherford % (Auto) Eos % (Auto) Baso % (Auto) Neut # (Auto) Lymph # (Auto) Rutherford # (Auto) Eos # (Auto) Baso # (Auto) Immature Gran # (Auto) Absolute Nucleated RBC Nucleated RBC % (auto) Toxic Vacuolation Platelet Estimate Polychromasia PT INR APTT PTT Ratio Fibrinogen D-Dimer VBG pH VBG pCO2 VBG pO2 VBG HCO3 VBG O2 Saturation VBG Base Excess Sodium Potassium Chloride Carbon Dioxide Anion Gap BUN Creatinine Est Cr Clr Drug Dosing eGFR BUN/Creatinine Ratio Glucose Lactate 1.6 Calcium Ionized Calcium Phosphorus Magnesium Total Bilirubin AST ALT Alkaline Phosphatase Troponin I High Sens Total Protein Albumin Globulin Albumin/Globulin Ratio TSH Nasal Screen MRSA (PCR) Adenovirus (PCR) B. pertussis DNA (PCR) B.parapertussis DNA PCR C. pneumoniae DNA (PCR) Coronavirus OC43 (PCR) Coronavirus HKU1 (PCR) Coronavirus 229E (PCR) SARS-CoV-2 (PCR) Coronavirus NL63 (PCR) Human Metapneumovir PCR Influenza Type A (PCR) Influenza Type B (PCR) M. pneumoniae (PCR) Parainfluenza 1 (PCR) Parainfluenza 2 (PCR) Parainfluenza 3 (PCR) Parainfluenza 4 (PCR) RSV (PCR) Entero/Rhino (PCR) Blood Type Antibody Screen Crossmatch 05/15/25 05/15/25 05/15/25 11:21 11:21 11:21 WBC RBC Cancelled Hgb 6.4 L* D Cancelled Hct 19.3 L* Cancelled MCV 88.9 MCH MCHC RDW Std Deviation RDW Coeff of Kevin Plt Count MPV Immature Gran % (Auto) Neut % (Auto) Lymph % (Auto) Rutherford % (Auto) Eos % (Auto) Baso % (Auto) Neut # (Auto) Lymph # (Auto) [place] # (Auto) Eos # (Auto) Baso # (Auto) Immature Gran # (Auto) Absolute Nucleated RBC Nucleated RBC % (auto) Toxic Vacuolation Platelet Estimate Polychromasia PT INR APTT PTT Ratio Fibrinogen D-Dimer VBG pH VBG pCO2 VBG pO2 VBG HCO3 VBG O2 Saturation VBG Base Excess Sodium Potassium Chloride Carbon Dioxide Anion Gap BUN Creatinine Est Cr Clr Drug Dosing eGFR BUN/Creatinine Ratio Glucose Lactate Calcium Ionized Calcium Phosphorus Magnesium Total Bilirubin AST ALT Alkaline Phosphatase Troponin I High Sens Total Protein Albumin Globulin Albumin/Globulin Ratio TSH Nasal Screen MRSA (PCR) Adenovirus (PCR) B. pertussis DNA (PCR) B.parapertussis DNA PCR C. pneumoniae DNA (PCR) Coronavirus OC43 (PCR) Coronavirus HKU1 (PCR) Coronavirus 229E (PCR) SARS-CoV-2 (PCR) Coronavirus NL63 (PCR) Human Metapneumovir PCR Influenza Type A (PCR) Influenza Type B (PCR) M. pneumoniae (PCR) Parainfluenza 1 (PCR) Parainfluenza 2 (PCR) Parainfluenza 3 (PCR) Parainfluenza 4 (PCR) RSV (PCR) Entero/Rhino (PCR) Blood Type Antibody Screen Crossmatch 05/15/25 05/15/25 05/15/25 11:21 11:21 11:21 WBC RBC Hgb Hct MCV Cancelled MCH 29.5 Cancelled MCHC 33.2 Cancelled RDW Std Deviation 45.8 RDW Coeff of Kevin Plt Count MPV Immature Gran % (Auto) Neut % (Auto) Lymph % (Auto) Rutherford % (Auto) Eos % (Auto) Baso % (Auto) Neut # (Auto) Lymph # (Auto) [place] # (Auto) Eos # (Auto) Baso # (Auto) Immature Gran # (Auto) Absolute Nucleated RBC Nucleated RBC % (auto) Toxic Vacuolation Platelet Estimate Polychromasia PT INR APTT PTT Ratio Fibrinogen D-Dimer VBG pH VBG pCO2 VBG pO2 VBG HCO3 VBG O2 Saturation VBG Base Excess Sodium Potassium Chloride Carbon Dioxide Anion Gap BUN Creatinine Est Cr Clr Drug Dosing eGFR BUN/Creatinine Ratio Glucose Lactate Calcium Ionized Calcium Phosphorus Magnesium Total Bilirubin AST ALT Alkaline Phosphatase Troponin I High Sens Total Protein Albumin Globulin Albumin/Globulin Ratio TSH Nasal Screen MRSA (PCR) Adenovirus (PCR) B. pertussis DNA (PCR) B.parapertussis DNA PCR C. pneumoniae DNA (PCR) Coronavirus OC43 (PCR) Coronavirus HKU1 (PCR) Coronavirus 229E (PCR) SARS-CoV-2 (PCR) Coronavirus NL63 (PCR) Human Metapneumovir PCR Influenza Type A (PCR) Influenza Type B (PCR) M. pneumoniae (PCR) Parainfluenza 1 (PCR) Parainfluenza 2 (PCR) Parainfluenza 3 (PCR) Parainfluenza 4 (PCR) RSV (PCR) Entero/Rhino (PCR) Blood Type Antibody Screen Crossmatch 05/15/25 05/15/25 05/15/25 11:21 11:21 11:21 WBC RBC Hgb Hct MCV MCH MCHC RDW Std Deviation Cancelled RDW Coeff of Kevin 14.1 Cancelled Plt Count 202 Cancelled MPV 10.8 Immature Gran % (Auto) Neut % (Auto) Lymph % (Auto) Rutherford % (Auto) Eos % (Auto) Baso % (Auto) Neut # (Auto) Lymph # (Auto) [place] # (Auto) Eos # (Auto) Baso # (Auto) Immature Gran # (Auto) Absolute Nucleated RBC Nucleated RBC % (auto) Toxic Vacuolation Platelet Estimate Polychromasia PT INR APTT PTT Ratio Fibrinogen D-Dimer VBG pH VBG pCO2 VBG pO2 VBG HCO3 VBG O2 Saturation VBG Base Excess Sodium Potassium Chloride Carbon Dioxide Anion Gap BUN Creatinine Est Cr Clr Drug Dosing eGFR BUN/Creatinine Ratio Glucose Lactate Calcium Ionized Calcium Phosphorus Magnesium Total Bilirubin AST ALT Alkaline Phosphatase Troponin I High Sens Total Protein Albumin Globulin Albumin/Globulin Ratio TSH Nasal Screen MRSA (PCR) Adenovirus (PCR) B. pertussis DNA (PCR) B.parapertussis DNA PCR C. pneumoniae DNA (PCR) Coronavirus OC43 (PCR) Coronavirus HKU1 (PCR) Coronavirus 229E (PCR) SARS-CoV-2 (PCR) Coronavirus NL63 (PCR) Human Metapneumovir PCR Influenza Type A (PCR) Influenza Type B (PCR) M. pneumoniae (PCR) Parainfluenza 1 (PCR) Parainfluenza 2 (PCR) Parainfluenza 3 (PCR) Parainfluenza 4 (PCR) RSV (PCR) Entero/Rhino (PCR) Blood Type Antibody Screen Crossmatch 05/15/25 05/15/25 05/15/25 11:21 12:23 15:00 WBC 10.59 RBC 3.53 L Hgb 10.4 L D Hct 30.9 L MCV 87.5 MCH 29.5 MCHC 33.7 RDW Std Deviation 47.0 H RDW Coeff of Kevin 14.6 H Plt Count 188 MPV Cancelled 10.8 Immature Gran % (Auto) Neut % (Auto) Lymph % (Auto) Rutherford % (Auto) Eos % (Auto) Baso % (Auto) Neut # (Auto) Lymph # (Auto) [place] # (Auto) Eos # (Auto) Baso # (Auto) Immature Gran # (Auto) Absolute Nucleated RBC Cancelled Nucleated RBC % (auto) Cancelled Toxic Vacuolation Platelet Estimate Cancelled Polychromasia PT 11.8 INR 1.1 APTT 25 PTT Ratio 0.9 Fibrinogen 180 L D-Dimer 600 H* VBG pH 7.35 L VBG pCO2 38 VBG pO2 32 VBG HCO3 21 VBG O2 Saturation 63.7 VBG Base Excess -4.2 Sodium 136 139 Potassium 4.3 3.8 Chloride 109 H 111 H Carbon Dioxide 24 22 Anion Gap 3 6 BUN 36 H 29 H Creatinine 0.62 0.61 Est Cr Clr Drug Dosing 81.1 82.4 eGFR 96.94 97.32 BUN/Creatinine Ratio 58.1 H 47.5 H Glucose 138 H 100 H Lactate 1.9 Calcium 7.5 L 7.9 L Ionized Calcium 1.11 L Phosphorus 2.2 L Magnesium 1.6 L Total Bilirubin AST ALT Alkaline Phosphatase Troponin I High Sens Total Protein Albumin Globulin Albumin/Globulin Ratio TSH Nasal Screen MRSA (PCR) Adenovirus (PCR) B. pertussis DNA (PCR) B.parapertussis DNA PCR C. pneumoniae DNA (PCR) Coronavirus OC43 (PCR) Coronavirus HKU1 (PCR) Coronavirus 229E (PCR) SARS-CoV-2 (PCR) Coronavirus NL63 (PCR) Human Metapneumovir PCR Influenza Type A (PCR) Influenza Type B (PCR) M. pneumoniae (PCR) Parainfluenza 1 (PCR) Parainfluenza 2 (PCR) Parainfluenza 3 (PCR) Parainfluenza 4 (PCR) RSV (PCR) Entero/Rhino (PCR) Blood Type Antibody Screen Crossmatch 05/15/25 05/15/25 05/15/25 17:53 23:47 Unknown WBC RBC Hgb 9.7 L 9.2 L Hct 28.3 L 26.8 L MCV MCH MCHC RDW Std Deviation RDW Coeff of Kevin Plt Count MPV Immature Gran % (Auto) Neut % (Auto) Lymph % (Auto) [place]utherford % (Auto) Eos % (Auto) Baso % (Auto) Neut # (Auto) Lymph # (Auto) [place] # (Auto) Eos # (Auto) Baso # (Auto) Immature Gran # (Auto) Absolute Nucleated RBC Nucleated RBC % (auto) Toxic Vacuolation Platelet Estimate Polychromasia PT INR APTT PTT Ratio Fibrinogen D-Dimer VBG pH VBG pCO2 VBG pO2 VBG HCO3 VBG O2 Saturation VBG Base Excess Sodium Potassium Chloride Carbon Dioxide Anion Gap BUN Creatinine Est Cr Clr Drug Dosing eGFR BUN/Creatinine Ratio Glucose Lactate Calcium Ionized Calcium Phosphorus Magnesium Total Bilirubin AST ALT Alkaline Phosphatase Troponin I High Sens Total Protein Albumin Globulin Albumin/Globulin Ratio TSH Nasal Screen MRSA (PCR) Negative Adenovirus (PCR) B. pertussis DNA (PCR) B.parapertussis DNA PCR C. pneumoniae DNA (PCR) Coronavirus OC43 (PCR) Coronavirus HKU1 (PCR) Coronavirus 229E (PCR) SARS-CoV-2 (PCR) Coronavirus NL63 (PCR) Human Metapneumovir PCR Influenza Type A (PCR) Influenza Type B (PCR) M. pneumoniae (PCR) Parainfluenza 1 (PCR) Parainfluenza 2 (PCR) Parainfluenza 3 (PCR) Parainfluenza 4 (PCR) RSV (PCR) Entero/Rhino (PCR) Blood Type Antibody Screen Crossmatch 05/16/25 05/16/25 05/17/25 04:25 11:42 05:59 WBC 6.78 7.00 RBC 3.27 L 3.46 L Hgb 9.5 L 9.9 L 10.1 L Hct 27.9 L 29.3 L 29.2 L MCV 85.3 84.4 MCH 29.1 29.2 MCHC 34.1 34.6 RDW Std Deviation 46.5 H 45.0 RDW Coeff of Kevin 15.2 H 14.9 H Plt Count 174 167 MPV 11.0 11.7 Immature Gran % (Auto) 0.4 0.6 Neut % (Auto) 62.3 55.5 Lymph % (Auto) 27.6 32.4 Rutherford % (Auto) 8.3 8.1 Eos % (Auto) 0.7 2.4 Baso % (Auto) 0.7 1.0 Neut # (Auto) 4.22 3.88 Lymph # (Auto) 1.87 2.27 Rutherford # (Auto) 0.56 0.57 Eos # (Auto) 0.05 0.17 Baso # (Auto) 0.05 0.07 Immature Gran # (Auto) 0.03 0.04 Absolute Nucleated RBC Nucleated RBC % (auto) Toxic Vacuolation 1+ Platelet Estimate Polychromasia 1+ PT INR APTT PTT Ratio Fibrinogen D-Dimer VBG pH VBG pCO2 VBG pO2 VBG HCO3 VBG O2 Saturation VBG Base Excess Sodium 142 140 Potassium 3.4 L 3.7 Chloride 110 H 108 H Carbon Dioxide 26 26 Anion Gap 6 6 BUN 19 12 Creatinine 0.65 0.67 Est Cr Clr Drug Dosing 79.0 76.7 eGFR 95.84 95.15 BUN/Creatinine Ratio 29.2 H 17.9 Glucose 93 96 Lactate Calcium 8.0 L 8.6 Ionized Calcium Phosphorus 2.4 L Magnesium 2.1 Total Bilirubin AST ALT Alkaline Phosphatase Troponin I High Sens Total Protein Albumin Globulin Albumin/Globulin Ratio TSH Nasal Screen MRSA (PCR) Adenovirus (PCR) B. pertussis DNA (PCR) B.parapertussis DNA PCR C. pneumoniae DNA (PCR) Coronavirus OC43 (PCR) Coronavirus HKU1 (PCR) Coronavirus 229E (PCR) SARS-CoV-2 (PCR) Coronavirus NL63 (PCR) Human Metapneumovir PCR Influenza Type A (PCR) Influenza Type B (PCR) M. pneumoniae (PCR) Parainfluenza 1 (PCR) Parainfluenza 2 (PCR) Parainfluenza 3 (PCR) Parainfluenza 4 (PCR) RSV (PCR) Entero/Rhino (PCR) Blood Type Antibody Screen Crossmatch PG Care Time/CCT Total # of Minutes Spent Total Time Spent with Patient: Total time spent is greater than 50% in coordination of care (as documented) at patient's floor/unit and/or counseling patient: Coding Level of Care Code 01587 SUB INP/OBS CARE 2/35MIN Diagnoses GI bleeding K92.2
--- NOTE | 2025-05-17 14:28 | Hospitalist Progress Note ---
Date of Service May 17, 2025 Assessment & Plan (1) Acute blood loss anemia: Plan: Acute blood loss anemia Upper GI bleed Hypovolemic shock Patient presented to the hospital with dizziness, melanotic stool Hemoglobin down trended from 12.9-6.4 in 24 hours Status post 3 packed RBC transfusion along with 2 FFP as per massive transfusion protocol CTA abdomen concerning for GI bleed and patient taken to EGD emergently EGD on 05/15 showed dieulafoy lesion with oozing bleeding and stigmata of recent bleeding; was injected with epinephrine and 3 hemostatic clips successfully placed with the stoppage of the bleeding. Transfer out of ICU on 05/16 Diet advanced to low fiber; continue monitor. Monitor for rebleeding Continue on Protonix twice daily Possible DC in a.m. with plan to follow-up with GI as outpatient in next few weeks (2) Melena: Plan: -see above (3) Hypothyroidism: Plan: -continue levothyroxine (4) HLD (hyperlipidemia): Plan: -continue simvastatin Plan Time spent evaluating patient, direct bedside care, chart review, placing orders, interpretation of diagnostic studies, discussion with consultants, patient, and family members, as well as other required patient management activities is 50 minutes Admission and Anticipated Discharge Date Admission Date: May 15, 2025 Subjective Patient seen and examined at bedside. She is comfortable; not in distress. No recurrence of abdominal pain or discomfort. No signs of rebleeding. Review of Systems Review of Systems: All systems reviewed & are unremarkable except as noted in Subjective Physical Exam Physical Exam: Constitutional: WD/WN, vitals as above, NAD, sitting up in bed, pleasant, conversing easily Respiratory: normal respiratory effort, lungs clear to auscultation, no wheeze, rales, rhonchi. Normal insp/exp effort, no accessory muscle use Cardiovascular: RRR, no murmur, no edema Vessels: no JVD or carotid bruit Chest: normal inspection of chest Abdomen: normal bowel sounds, soft, nontender, no hepatosplenomegaly Musculoskeletal: no cyanosis or clubbing, extremities motor strength 5/5 Skin: no rashes, warm and dry normal turgor Neurologic: PERRL, EOMI, accommodation nl, no face palsy, no dysarthria CN's II- XI intact bilaterally and moves all extremities Psychiatric: A+Ox3, euthymic affect Results & Data Results & Data Vital Signs (Past 12 Hours) Vital Signs Temp Pulse Pulse Resp BP Pulse Ox O2 Del Method 05/17/25 11:50 36.6 C 79 19 106/71 96 Room Air 05/17/25 07:56 36.6 C 70 19 104/68 97 Room Air 05/17/25 07:30 78 05/17/25 04:00 36.8 C 73 16 103/68 96 Room Air
[2025-05-17 20:17] VITALS: O2SAT 97
[2025-05-18 04:42] VITALS: TEMP 98.2
[2025-05-18 06:18] LABS: Hematocrit (blood only) 29.6 % (37.0-47.0); Hemoglobin 10.1 g/dl (12.0-16.0); Immature Granulocytes # (auto) 0.02 K/uL (0.01-0.20); Immature Granulocytes % (auto) 0.3 %; Mean Corpuscular Hemoglobin 29.4 pg (25.0-34.0); Mean Corpuscular Volume 86.3 fL (80.0-100.0); Platelet Count 217 K/uL (130-400); RDW Standard Deviation 45.1 fL (36.4-46.3); Red Blood Count 3.43 M/uL (4.20-5.40); White Blood Count 7.15 K/ul (4.8-10.8)
[2025-05-18 06:59] LABS: Anion Gap 8.0 (3-11); Calcium 8.7 mg/dl (8.6-10.3); Carbon Dioxide 27.0 mmol/L (21-32); Chloride 106.0 mmol/L (98-107); Potassium 3.7 mmol/L (3.5-5.1); Sodium 141.0 mmol/L (136-145)
[2025-05-18 07:04] LABS: Blood Urea Nitrogen 12.0 mg/dl (6-23); Creatinine Clr Calc Pharmacy 71.3 ml/min; Glucose 95.0 mg/dl (70-99(Fasting))
[2025-05-18 07:36] VITALS: PULSE 66; RESP 19
--- NOTE | 2025-05-18 07:48 | Discharge Summary ---
Date of Service May 18, 2025 Admission HPI Per Admitting Provider 70 yo female with pmhx of hypothyroidism, diverticulosis, HLD who presents for melena and syncope. No admissions at [facility]. Had ED visit yesterday for melena, Hgb stable, discharged home. Today, presents for syncopal episodes while walking, Hgb drop of 3 points, given meclizine, CTA chest unrevealing, admitted to medicine for further workup. On medicine, this provider ordered CTA abdomen/pelvis STAT, started protonix, ordered lactic acid, fluids, GI consulted immediately upon admission. Upon evaluation, blood ordered given paleness and diminished cap refill. Patient seen and evaluated at bedside. present as well. Patient had large melanotic diarrhea yesterday. No BM since then. This morning had presyncopal and syncopal episodes from sitting to standing. Patient feels very fatigued and weak. She states she is feeling sleepy all the time for the past 24-48 hours. Some nausea as well. Denies chest pain or SOB. No alcohol use, no tobacco use, no drug use, full code (discussed and recommended to patient and family who agree) Admission Exam Per Admitting Provider Gen: A&O 3 NAD, ill appearing HEENT: NCAT, EOMI, not icteric. External ears normal. No rhinorrhea. Moist mucous membranes. Neck: Supple, full range of motion, no observable masses, No meningeal sign. Lungs: No Respiratory distress. CV: tachycardic, regular rhythm Abdomen: Soft, nondistended, No rebound tenderness. MSK: No joint swelling, no redness. Diminished cap refill. Skin: No rashes, petechiae, lesions. Pale appearing Neuro: Normal Gait, Grossly intact. Psych: Appropriate for situation. Principal Diagnosis Upper GI bleed Discharge Exam Constitutional: WD/WN, vitals as above, NAD, sitting up in bed, pleasant, conversing easily Respiratory: normal respiratory effort, lungs clear to auscultation, no wheeze, rales, rhonchi. Normal insp/exp effort, no accessory muscle use Cardiovascular: RRR, no murmur, no edema Vessels: no JVD or carotid bruit Chest: normal inspection of chest Abdomen: normal bowel sounds, soft, nontender, no hepatosplenomegaly Musculoskeletal: no cyanosis or clubbing, extremities motor strength 5/5 Skin: no rashes, warm and dry normal turgor Neurologic: PERRL, EOMI, accommodation nl, no face palsy, no dysarthria CN's II- XI intact bilaterally and moves all extremities Psychiatric: A+Ox3, euthymic affect Discharge Data Allergies Allergy/AdvReac Type Severity Reaction Status Date / Time No Known Allergies Allergy Unverified 02/27/11 20:45 Consultations 05/15/25 09:45 ED Decision to Admit Stat 05/15/25 09:50 Consult Gastroenterology Routine 05/15/25 10:29 Consult Sales Contract Administrator Routine Procedures Performed Operation Date: 05/15/25 11:00 Actual Procedures p EGD Hemostasis - Jose De Jesus Newman MD Ordered Studies 05/15/25 08:03 CT for pulmonary embolism PE [CT angio chest PE protocol] Stat 05/15/25 09:45 CTA abdomen pelvis w con [CT angio abdomen pelvis w con] Stat 05/15/25 12:05 US point of care ultrasound Routine Hospital Course (1) Acute blood loss anemia: (2) Melena: (3) Hypothyroidism: (4) HLD (hyperlipidemia): Plan Acute blood loss anemia Upper GI bleed Hypovolemic shock Patient presented to the hospital with dizziness, melanotic stool Hemoglobin down trended from 12.9-6.4 in 24 hours Status post 3 packed RBC transfusion along with 2 FFP as per massive transfusion protocol CTA abdomen concerning for GI bleed and patient taken to EGD emergently EGD on 05/15 showed dieulafoy lesion with oozing bleeding and stigmata of recent bleeding; was injected with epinephrine and 3 hemostatic clips successfully placed with the stoppage of the bleeding. Patient was observed in ICU after the endoscopy. No sign or symptom of rebleeding was noticed and she was transferred out of ICU on 05/16. Diet was gradually advanced to low fiber diet. Patient hemoglobin is stabilized around 10 and she was tolerating diet without any difficulty. She was discharged on Protonix twice daily with instruction to follow-up with PCP and GI. Please note the above document was generated using voice recognition software. It may contain grammatical, syntax or spelling errors. Any formal questions or concerns about the content, text or information contained within the body of this dictation should be directly addressed to the provider for clarification Total Time Total Time Spent Total Time Spent (In Minutes): 45 Total Time Includes: Examination of the Patient, Discharge Planning, Medication Reconciliation, Communication With Other Providers and Other Discharge Plan Discharge Items Patient Disposition: Home - Self-Care Reason For Visit: GI BLEED Discharge Diagnosis: Acute blood loss anemia Upper GI bleed Hypovolemic shock Condition on Discharge: Fair Activity: Resume your previous activity Non-emergency contact: Primary Care Provider Call non-emergency contact if: you have any medication questions and your symptoms worsen Follow-up/Referrals: Berlin Frausto MD [Primary Care Provider] - (Date & Time 05/23/2025 11:20 AM Provider: Berlin Frausto MD [facility] ) Diet: Low Fiber Addtl Attending Provider Instructions: You are found to have blood vessel that was bleeding in your stomach. You underwent endoscopy by the GI doctor who placed hemostatic clips. The bleeding. You are prescribed Protonix to be taken twice a day for the next 4 weeks; then take it once a day. An appointment is set up with your primary care doctor for follow-up in next few days. Follow-up with GI provider as well in next few weeks. Pending Studies at Discharge: No Stand-Alone Forms: [facility] [employer], Smoking Cessation Medications and DC Order Prescriptions: New pantoprazole [Protonix] 40 mg tablet,delayed release (DR/EC) 40 mg PO BID 28 Days Qty: 56 0RF Continued simvastatin 20 mg Tablet 20 mg PO PM Qty: 0 Premarin 0.625 mg Tablet 0 mg PO DAILY Qty: 0 Patient Comments: 05/15- no fill history unable to verify levothyroxine 100 mcg tablet 100 mcg PO DAILY Discharge Orders: Discharge Order (Routine); Ordered 05/18/25 Ordered By: Wilver Osborn Admission Data Admit Date/Time: 05/15/25 09:49 Attending Provider: Wilver Osborn Admit Provider: Mj Campos Primary Care Provider: Berlin Frausto Other Providers: Mj Campos; Jose De Jesus Newman I; Roxanna Carrasco
[2025-05-18 09:22] VITALS: BP 104/66
== END 2025-05-18 10:18 | disposition home or self-care (01) | DRG 377 ==
LOC: ED 07:32 → SUATTDRO 09:49 → 1E 09:49 → 4W 05-16 21:49